=== PATIENT | male | born 1975 | race Two or more races ===

== ENCOUNTER → 2017-01-27 | Outpatient (CLI) | payer OTHER ==
[~2017-01-27] MED LIST: PERCOCET PO
--- NOTE | 2017-02-03 01:40 | ECWPNPC ---
PATIENT NAME: MOHINDER CRUMP : 1975 GENDER: MALE VISIT DATE: 01/27/2017 DISCHARGE DATE: 01/27/17 1518 VISIT LOCKED DATE TIME: PHYSICIAN: GLENN LANGLEY RESOURCE: GLENN LANGLEY REASON FOR APPOINTMENT 1. LOW BACK PAIN W/C HISTORY OF PRESENT ILLNESS NEW PATIENT CONSULT: WHEN DID YOUR PAIN FIRST START? . BRIEFLY DESCRIBE HOW YOUR PAIN STARTED? . HOW DOES YOUR PAIN CHANGE WITH TIME? . DOES YOUR PAIN AWAKEN YOU FROM SLEEP? . HOW MANY HOURS OF SLEEP DO YOU NORMALLY GET? . ANY DIAGNOSTIC TESTING? . FACILITY WHERE TESTS WERE DONE? ____. PAIN TREATMENT TREATMENT YES CANCER HAVE YOU EVER HAD ANY TYPE OF CANCER?NO NO. 41 YEAR OLD MALE PATIENT WITH HISTORY OF CHRONIC LOW BACK PAIN. PATIENT DESCRIBES THE PAIN BURNING, STABBING, SHOOTING, AND HAVING IT ALL THE TIME WITH A PAIN SCORE OF 6/10. 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 PATIENT HAS HAD BACK SURGERY FOUR YEARS PRIOR. MR. CRUMP HAS TRIED PHYSICAL THERAPY WHICH HE STATES HELPS AT THE TIME BUT THE PAIN SEEMS TO ALWAYS BE PRESENT. PATIENT IS CURRENTLY USING LYRICA TO AID IN PAIN RELIEF. MR. CRUMP HAS TRIED INJECTIONS AND STATES THAT THEY DO NOT AID IN PAIN RELIEF. PATIENT STATES THAT ANY TYPE OF ACTIVITY INCREASES THE PAIN IN THE LOWER BACK SUCH WALKING, STANDING, SITTING, AND BENDING. AT THIS TIME THE PATIENT STATES A TENNS UNIT AIDS IN PAIN RELIEF. PATIENT DENIES UNEXPLAINABLE WEIGHT LOSS, FEVER, CHILLS, NEW CHANGES ON HIS URINARY OR BOWEL CONTROL. PAIN SCREENING: PATIENT HAS A COMPLAINT OF ACUTE OR CHRONIC PAIN YES FALL RISK SCREENING: SCREENING :NO FALLS IN THE PAST YEAR ALVARADO INVENTORY: QUESTIONNAIRE ASSESSEDTBD SCORE VALUE CALCULATED TBD CURRENT MEDICATIONS TAKING LISINOPRIL-HYDROCHLOROTHIAZIDE 20-12.5 MG TABLET 1 TABLET ORALLY ONCE A DAY TAKING AMLODIPINE BESYLATE 5 MG TABLET 1 TABLET ORALLY ONCE A DAY TAKING OMEPRAZOLE 40 MG CAPSULE DELAYED RELEASE 1 CAPSULE ORALLY ONCE A DAY TAKING VENLAFAXINE HCL 37.5 MG TABLET 1 TABLET WITH FOOD ORALLY DAILY TAKING BUPROPION HCL (XL) 300 MG TABLET EXTENDED RELEASE 24 HOUR 1 TABLET IN THE MORNING ORALLY ONCE A DAY TAKING ATORVASTATIN CALCIUM 20 MG TABLET 1 TABLET ORALLY ONCE A DAY TAKING METFORMIN HCL 500 MG TABLET 1 TABLET WITH MEALS ORALLY TWICE A DAY TAKING LYRICA 75 MG CAPSULE 1 CAPSULE ORALLY TWICE A DAY MEDICATION LIST REVIEWED AND RECONCILED WITH THE PATIENT PAST MEDICAL HISTORY SLEEP APNEA HYPERCHOLESTREMIA HTN TYPE II DM GERD ALLERGIES PENICILLIN (FOR ALLERGIES USE ONLY) SURGICAL HISTORY BACK SURGERY 08/1992 BACK SURGERY 09/2013 CARPAL TUNNEL 06/2015 CARPAL TUNNEL 07/2015 FAMILY HISTORY NO FAMILY HISTORY DOCUMENTED. SOCIAL HISTORY GENERAL: TOBACCO USE ARE YOU A:CURRENT SMOKER PATIENT COUNSELED ON THE DANGERS OF TOBACCO USE AND URGED TO QUIT:01/27/2017 ARE YOU INTERESTED IN QUITTING?READY TO QUIT COUNSELED THE PATIENT ON TOBACCO USE, CESSATION [id number]/08/2017 ALCOHOL SCREENING POINTS8 INTERPRETATIONPOSITIVE RECREATIONAL DRUG USE DRUG USE?NO CAFFEINE CAFFEINE USE?YES HOW OFTEN AND HOW MUCH? 3 CUPS OF COFFEE EVERY MORNING OCCUPATION: [employer]. DIET: REGULAR. EXERCISE: WALKS, DAILY. MARITAL STATUS: SINGLE. OTHERS AT HOME: NONE. PETS: 1 DOG. SCIENTOLOGIST: MANDAEISM. LANGUAGE: TAMAZIGHT. 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 LEARNING BARRIERS / SPECIAL NEEDS CHANGE FROM LAST VISIT?NO BARRIERS TO LEARNING?NO HEARING IMPAIRED?NO VISION IMPAIRED?NO COGNITIVELY IMPAIRED?NO LEARNING PREFERENCES?NO SPECIAL DEVICES?NO LOCKSTITCH ZIPPER SETTER NEEDED?NO PSYCHOLOGICAL HX TREATMENTNO PAIN CLINIC PFS, CLERGY, PUBLIC HEALTH REFERRALS CLERGY REFERRAL NEEDED?NO WAS THE PROVIDER NOTIFIED OF ANY PERTINENT INFO?NO PFS REFERRAL NEEDED?NO PUBLIC HEALTH REFERRAL NEEDED?NO PATIENT: ____. ADVANCED DIRECTIVES HEALTH CARE PROXY?NO POWER OF PAINTER PLATE?NO HOSPITALIZATION/MAJOR DIAGNOSTIC PROCEDURE BACK SURGERY 08/1992 BACK SURGERY 09/2013 HEAD INJURY FROM A FALL 04/2014 REVIEW OF SYSTEMS CONSTITUTIONAL: ANY CHANGE IN YOUR MEDICAL CONDITION? NO . CHILLS NO . FEVER NO . INFECTION: DO YOU HAVE NEW INFECTIONS? NO . DO YOU HAVE HISTORY OF MRSA? NO . MUSCULOSKELETAL: ANY NEW PATTERNS OF PAIN OR NUMBNESS? NO . SYTEMIC LUPUS NO . GASTROENTEROLOGY: ANY NEW CHANGE IN BOWEL CONTROL? NO . BARRETTS ESOPHAGUS NO . CIRRHOSIS NO . HEPATITIS NO . LIVER FAILURE NO . ACID REFLUX NO . UNEXPLAINED WEIGHT LOSS NO . GENITOURINARY: ANY NEW CHANGE IN BLADDER CONTROL? NO . IS THERE A CHANCE YOU COULD BE ? NO . HEMATOLOGY/LYMPH: DO YOU TAKE ANY BLOOD THINNERS? (FOR EXAMPLE- COUMADIN, PLAVIX, AGGRENOX, PLATEL, PRADAXA, OR XARELTO) NO . WHEN WAS YOUR LAST DOSE? DATE: TIME: . LOW PLATELET COUNT NO . SICKLE CELL DISEASE NO . VON WILLIEBRANDS NO . FACTOR V LEIDEN NO . THALLASEMIA NO . ANEMIA NO . EASY BRUISING NO . NEUROLOGY: HAVE YOU FALLEN IN THE PAST 6 MONTHS? NO . ANY NEW EXTREMITY NUMBNESS OR WEAKNESS? NO . HEAD INJURY NO . DEMENTIA NO . CEREBRAL PALSY NO . MULTIPLE SCLEROSIS NO . DIZZINESS NO . HEADACHE NO . STROKES NO . VERTIGO NO . CARDIOLOGY: DO YOU HAVE A PACEMAKER OR DEFIBRILLATOR? NO . ANGINA NO . HEART ATTACK NO . HEART SURGERY NO . CONGESTIVE HEART FAILURE/FLUID OVERLOAD NO . CHEST PAIN NO . HIGH BLOOD PRESSURE NO . IRREGULAR HEART BEAT NO . RESPIRATORY: HAVE YOU BEEN SICK IN THE PAST WEEK? NO . FEVER NO . FLU LIKE SYMPTOMS? NO . CPAP NO . BYPAP NO . ASTHMA NO . EMPHYSEMA NO . CHRONIC LUNG DISEASES NO . SHORTNESS OF BREATH ON EXERTION NO . DO YOU USE ANY TYPE OF TOBACCO (SMOKE, SMOKELESS, CHEW)? NO . COUGH NO . SNORING NO . INTEGUMENTARY: DO YOU HAVE ANY RASHES OR OPEN SORES? YES . ALLERGIC/IMMUNO: ARE YOU ALLERGIC TO SHELLFISH OR IV DYE? NO . ANY NEW ALLERGIES? NO . PSYCHIATRIC: DO YOU HAVE THOUGHTS OF HURTING YOURSELF OR SOMEONE ELSE? NO . ARE YOU ABUSED, NEGLECTED, OR IN AN UNSAFE ENVIRONMENT? NO . ENDOCRINOLOGY: ARE YOU DIABETIC? YES . THYROID DISORDER NO . OTHER: DO YOU NEED ANY PRESCRIPTIONS? NO . IF YES, PLEASE LIST: ____ . ANY NEW PROBLEMS WITH YOUR MEDICATIONS? NO . WHEN DID YOU LAST EAT? ____ . WHEN DID YOU LAST DRINK? ____ . WHAT DID YOU LAST DRINK? ____ . NAME OF PERSON DRIVING YOU HOME? ____ . DO YOU HAVE ANY OTHER QUESTIONS OR CONCERNS NO . REVIEWED BY: PROVIDER: GLENN LANGLEY MD . VITAL SIGNS WT 309.2 LBS, HT 71.5", BMI 42.52 INDEX, BP 133/78 MM HG, HR 95 /MIN, RR 18 /MIN, TEMP 98.2 F, OXYGEN SAT % 94, NA INITIALS TL 1322, REVIEWED BY: MARISA. EXAMINATION : PATIENT IS ALERT O X 3 AND COOPERATIVE. TENDERNESS IN THE LOWER BACK AND PARASPINAL MUSCLE GROUP. BANDS OF TISSUE, RESTRICTION OF MOVEMENT, AND PRESENCE OF TRIGGER POINTS IN THE LOWER BACK AREA. TWO SCARS IN THE LOWER BACK APPROXIMATELY 2 1/2 INCHES LONG AND ANOTHER 3 INCHES LONG. DIFFICULTY STANDING. LIMPING FROM RIGHT LEG. RIGHT LEG WEAKER THEN THE LEFT AT EXTENSION AND FLEXION. MRI DONE ON 05/27/16 OF THE LUMBAR SPINE SHOWS DISC BULGES AT L1-L2 AND L3-L4, DISC PROTRUSION L2-L3, DISC EXTRUSION L4-L5 AND L5-S1, AND HYPERTROPHY. ASSESSMENTS INTERVERTEBRAL DISC DISORDERS WITH RADICULOPATHY, LUMBAR REGION - M51.16 (PRIMARY) INTERVERTEBRAL DISC DISORDERS WITH RADICULOPATHY, LUMBOSACRAL REGION - M51.17 TREATMENT INTERVERTEBRAL DISC DISORDERS WITH RADICULOPATHY, LUMBAR REGION NOTES: WE DISCUSSED SEVERAL ISSUES WITH MR. CRUMP'S PAIN MANAGEMENT CASE. AT THIS TIME THE PATIENT WILL CONTINUE WITH THE SAME MEDICATION REGIME BEFORE. WE DISCUSSED MOVING FORWARD WITH THE DCS, PATIENT IS AWARE HE WILL NEED A THORACIC MRI ALONG WITH A PSYCHOLOGICAL EVALUATION BEFORE WE CAN MOVE FORWARD WITH THE TRIAL. AT THIS TIME THE PATIENT WILL TAKE HOME INFORMATION ON DCS FROM [facility] [employer]. PATIENT REPORTS UNDERSTANDING AND WILL RETURN TO THE CLINIC IN 6 WEEKS AFTER THE MRI AND PSYCHOLOGICAL EVALUATION. INSTRUCTIONS WERE GIVEN, QUESTIONS WERE ANSWERED, PATIENT REPORTS UNDERSTANDING AND AGREES WITH THE PLAN. I, RAKESH SANTOS, DOCUMENTED THE ABOVE INFORMATION ACTING A SCRIBE FOR DR. LANGLEY. I HAVE REVIEWED THE ABOVE DOCUMENT, WRITTEN BY RAKESH BOND AND I VERIFY THAT IT IS ACCURATE. DEAR DR. COX:THANK YOU FOR YOUR KIND REFERRAL OF MR. CRUMP. YOU WANT TO DISCUSS HER CASE WITH ME PLEASE CALL ME AT THE PAIN CENTER AT [phone]. SINCERELY,GLENN LANGLEY, [facility]. PROCEDURES PN WORKMANS' COMP OPINION IN YOUR OPINION, WAS THE INCIDENT THAT THE PATIENT DESCRIBED THE COMPETENT MEDICAL CAUSE OF THIS INJURY/ILLNESS? YES ARE THE PATIENT'S COMPLAINTS CONSISTENT WITH HIS/HER HISTORY OF THE INJURY/ILLNESS? YES IS THE PATIENT'S HISTORY OF THE INJURY/ILLNESS CONSISTENT WITH YOUR OBJECTIVE FINDING? YES WHAT IS THE PERCENTAGE OF TEMPORARY IMPAIRMENT? MODERATE TO MARKED = 66.7% IS THE PATIENT WORKING? NO DOCTOR ON SITE: GLENN NANCE MD PROCEDURE CODES FA211 ESTABILISHED PATIENT [facility] FACILITY CHARGE G8427 DOC MEDS VERIFIED W/PT OR RE G8730 PAIN ASSESS POS TOOL F/U PLAN DOC DISPOSITION & COMMUNICATION FOLLOW UP 6 WEEKS ELECTRONICALLY SIGNED BY GLENN LANGLEY MD ON 01/31/2017 AT 10:58 AM EDT DISCLAIMER : THIS IS A VISIT SUMMARY EXTRACTED FROM THE [facility] CHART. IT IS NOT A COPY OF THE [facility] PROGRESS NOTE. MTDD
== END ==
LOC: M PAIN 13:20
PROVIDERS: ATTEND Anesthesiology
DX: G89.29 Other chronic pain (principal); M51.16 Intervertebral disc disorders with radiculopathy, lumbar region; M51.17 Intervertebral disc disorders with radiculopathy, lumbosacral region; G47.30 Sleep apnea, unspecified; E78.00 Pure hypercholesterolemia, unspecified; I10 Essential (primary) hypertension; E11.9 Type 2 diabetes mellitus without complications; K21.9 Gastro-esophageal reflux disease without esophagitis; Z88.0 Allergy status to penicillin; F17.200 Nicotine dependence, unspecified, uncomplicated; Z79.84 Long term (current) use of oral hypoglycemic drugs; Z79.899 Other long term (current) drug therapy

== ENCOUNTER → 2017-05-26 | Outpatient (CLI) | payer OTHER ==
[~2017-05-26] MED LIST changes: +AMLO5TAB2 PO; +ATOR1TAB21 PO; +BUPR300T34 PO; +DRIS50002 PO; +LISI20TA PO; +LYRI75CA PO; +METF500T13 PO; +OMEP40CA2 PO; +VENL37.52 PO
--- NOTE | 2017-06-07 00:07 | ECWPNPC ---
PATIENT NAME: MOHINDER CRUMP : 1975 GENDER: MALE VISIT DATE: 05/26/2017 DISCHARGE DATE: 05/26/17 1536 VISIT LOCKED DATE TIME: PHYSICIAN: GLENN LANGLEY RESOURCE: GLENN LANGLEY REASON FOR APPOINTMENT 1. LOW BACK PAIN W/C HISTORY OF PRESENT ILLNESS HISTORY OF PRESENT ILLNESS: PAIN THE PATIENT DESCRIBES THE PAIN... 41 YEAR OLD MALE PATIENT WITH HISTORY OF CHRONIC LOW BACK PAIN. PATIENT DESCRIBES THE PAIN BURNING, STABBING, SHOOTING, AND HAVING IT ALL THE TIME WITH A PAIN SCORE OF 6/10. 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 PATIENT HAS HAD BACK SURGERY FOUR YEARS AGO. MR. CRUMP HAS TRIED PHYSICAL THERAPY WHICH HE STATES HELPS AT THE TIME BUT THE PAIN SEEMS TO ALWAYS BE PRESENT. PATIENT IS CURRENTLY USING LYRICA TO AID IN PAIN RELIEF. MR. CRUMP HAS TRIED INJECTIONS AND STATES THAT THEY DO NOT AID IN PAIN RELIEF. PATIENT HAS RECEIVED LUMBAR AND THORACIC MRI'S WELL A PSYCHOLOGICAL EVALUATION FOR A DCS. PATIENT STATES THAT ANY TYPE OF ACTIVITY INCREASES THE PAIN IN THE LOWER BACK SUCH WALKING, STANDING, SITTING, AND BENDING. AT THIS TIME THE PATIENT STATES A TENNS UNIT AIDS IN PAIN RELIEF. PATIENT DENIES UNEXPLAINABLE WEIGHT LOSS, FEVER, CHILLS, NEW CHANGES ON HIS URINARY OR BOWEL CONTROL. FALL RISK SCREENING: SCREENING :NO FALLS IN THE PAST YEAR CURRENT MEDICATIONS TAKING LISINOPRIL-HYDROCHLOROTHIAZIDE 20-12.5 MG TABLET 1 TABLET ORALLY ONCE A DAY TAKING AMLODIPINE BESYLATE 5 MG TABLET 1 TABLET ORALLY ONCE A DAY TAKING OMEPRAZOLE 40 MG CAPSULE DELAYED RELEASE 1 CAPSULE ORALLY ONCE A DAY TAKING VENLAFAXINE HCL 37.5 MG TABLET 1 TABLET WITH FOOD ORALLY DAILY TAKING BUPROPION HCL ER (XL) 300 MG TABLET EXTENDED RELEASE 24 HOUR 1 TABLET IN THE MORNING ORALLY ONCE A DAY TAKING ATORVASTATIN CALCIUM 20 MG TABLET 1 TABLET ORALLY ONCE A DAY TAKING METFORMIN HCL 500 MG TABLET 1 TABLET WITH MEALS ORALLY TWICE A DAY TAKING LYRICA 75 MG CAPSULE 1 CAPSULE ORALLY TWICE A DAY TAKING VALIUM 5 MG TABLET 1 TABLET NEEDED ORALLY 3 HRS BEFORE MRI MAY REPEAT IN 2 HRS IF NEEDED MDD2 TAKING VITAMIN D (ERGOCALCIFEROL) 69449 UNIT CAPSULE 1 CAPSULE ORALLY MEDICATION LIST REVIEWED AND RECONCILED WITH THE PATIENT PAST MEDICAL HISTORY SLEEP APNEA HYPERCHOLESTREMIA HTN TYPE II DM GERD ALLERGIES PENICILLIN (FOR ALLERGIES USE ONLY) REVIEW OF SYSTEMS REVIEWED BY: PROVIDER: GLENN LANGLEY MD . CONSTITUTIONAL: ANY CHANGE IN YOUR MEDICAL CONDITION? NO . CHILLS NO . FEVER NO . INFECTION: DO YOU HAVE NEW INFECTIONS? NO . DO YOU HAVE HISTORY OF MRSA? NO . MUSCULOSKELETAL: ANY NEW PATTERNS OF PAIN OR NUMBNESS? NO . GASTROENTEROLOGY: ANY NEW CHANGE IN BOWEL CONTROL? NO . GENITOURINARY: ANY NEW CHANGE IN BLADDER CONTROL? NO . IS THERE A CHANCE YOU COULD BE ? NO . HEMATOLOGY/LYMPH: DO YOU TAKE ANY BLOOD THINNERS? (FOR EXAMPLE- COUMADIN, PLAVIX, AGGRENOX, PLATEL, PRADAXA, OR XARELTO) NO . WHEN WAS YOUR LAST DOSE? DATE: TIME: . NEUROLOGY: HAVE YOU FALLEN IN THE PAST 6 MONTHS? NO . ANY NEW EXTREMITY NUMBNESS OR WEAKNESS? NO . CARDIOLOGY: DO YOU HAVE A PACEMAKER OR DEFIBRILLATOR? NO . RESPIRATORY: HAVE YOU BEEN SICK IN THE PAST WEEK? NO . FEVER NO . FLU LIKE SYMPTOMS? NO . COUGH NO . INTEGUMENTARY: DO YOU HAVE ANY RASHES OR OPEN SORES? NO . ALLERGIC/IMMUNO: ARE YOU ALLERGIC TO SHELLFISH OR IV DYE? NO . ANY NEW ALLERGIES? NO . PSYCHIATRIC: DO YOU HAVE THOUGHTS OF HURTING YOURSELF OR SOMEONE ELSE? NO . ARE YOU ABUSED, NEGLECTED, OR IN AN UNSAFE ENVIRONMENT? NO . ENDOCRINOLOGY: ARE YOU DIABETIC? NO . OTHER: DO YOU NEED ANY PRESCRIPTIONS? NO . IF YES, PLEASE LIST: ____ . ANY NEW PROBLEMS WITH YOUR MEDICATIONS? NO . WHEN DID YOU LAST EAT? ____ . WHEN DID YOU LAST DRINK? ____ . WHAT DID YOU LAST DRINK? ____ . NAME OF PERSON DRIVING YOU HOME? ____ . DO YOU HAVE ANY OTHER QUESTIONS OR CONCERNS NO . VITAL SIGNS WT 295.8 LBS, HT 71.5", BMI 40.68 INDEX, BP 133/76 MM HG, HR 94 /MIN, RR 111 /MIN, TEMP 98.8 F, OXYGEN SAT % 94%, NA INITIALS SC 14:33. EXAMINATION : PATIENT IS ALERT O X 3 AND COOPERATIVE. TENDERNESS IN THE LOWER BACK AND PARASPINAL MUSCLE GROUP. BANDS OF TISSUE, RESTRICTION OF MOVEMENT, AND PRESENCE OF TRIGGER POINTS IN THE LOWER BACK AREA. TWO SCARS IN THE LOWER BACK APPROXIMATELY 2 1/2 INCHES LONG AND ANOTHER 3 INCHES LONG. DIFFICULTY STANDING. LIMPING FROM RIGHT LEG. RIGHT LEG WEAKER THEN THE LEFT AT EXTENSION AND FLEXION. MRI DONE ON 05/27/16 OF THE LUMBAR SPINE SHOWS DISC BULGES AT L1-L2 AND L3-L4, DISC PROTRUSION L2-L3, DISC EXTRUSION L4-L5 AND L5-S1, AND HYPERTROPHY. ASSESSMENTS INTERVERTEBRAL DISC DISORDERS WITH RADICULOPATHY, LUMBAR REGION - M51.16 (PRIMARY) INTERVERTEBRAL DISC DISORDERS WITH RADICULOPATHY, LUMBOSACRAL REGION - M51.17 TREATMENT INTERVERTEBRAL DISC DISORDERS WITH RADICULOPATHY, LUMBAR REGION NOTES: WE DISCUSSED SEVERAL ISSUES WITH MR. CRUMP'S PAIN MANAGEMENT CASE. AT THIS TIME THE PATIENT WILL CONTINUE WITH THE SAME MEDICATION REGIME. AFTER VIEWING THE PSYCHOLOGICAL EVALUATION ALONG WIT THE MRI'S THE PATIENT IS A VERY GOOD CANDIDATE FOR THE DCS. AT THIS TIME HE HAS CHOSEN TO MOVE FORWARD WITH [employer]. I AM GOING TO REQUEST AUTHORIZATION FOR THE TRIAL AT THIS TIME. PATIENT IS AWARE THAT THE TRIAL IS 5 DAYS LONG AND WILL NEED TO STAY ONE NIGHT IN THE HOSPITAL TO RECEIVE ANTIBIOTICS THROUGH AN IV. WE DISCUSSED THE RISKS, BENENFITS, AND ALTNERATIVES OF THE DCS AND THE PATIENT WOULD LIKE TO PROCEED. INSTRUCTIONS WERE GIVEN, QUESTIONS WERE ANSWERED, PATIENT REPORTS UNDERSTANDING AND AGREES WITH THE PLAN. I, RAKESH SANTOS, DOCUMENTED THE ABOVE INFORMATION ACTING A SCRIBE FOR DR. LANGLEY. I HAVE REVIEWED THE ABOVE DOCUMENT, WRITTEN BY RAKESH BOND AND I VERIFY THAT IT IS ACCURATE. PROCEDURES PN WORKMANS' COMP OPINION IN YOUR OPINION, WAS THE INCIDENT THAT THE PATIENT DESCRIBED THE COMPETENT MEDICAL CAUSE OF THIS INJURY/ILLNESS? YES ARE THE PATIENT'S COMPLAINTS CONSISTENT WITH HIS/HER HISTORY OF THE INJURY/ILLNESS? YES IS THE PATIENT'S HISTORY OF THE INJURY/ILLNESS CONSISTENT WITH YOUR OBJECTIVE FINDING? YES WHAT IS THE PERCENTAGE OF TEMPORARY IMPAIRMENT? MODERATE TO MARKED = 66.7% IS THE PATIENT WORKING? NO DOCTOR ON SITE: GLENN NANCE MD PROCEDURE CODES FA211 ESTABILISHED PATIENT [facility] FACILITY CHARGE G2022 DOC MEDS VERIFIED W/PT OR RE W7408 PAIN ASSESS POS TOOL F/U PLAN DOC DISPOSITION & COMMUNICATION FOLLOW UP 3 WEEKS ELECTRONICALLY SIGNED BY GLENN LANGLEY MD ON 06/06/2017 AT 10:13 PM EDT DISCLAIMER : THIS IS A VISIT SUMMARY EXTRACTED FROM THE [facility] CHART. IT IS NOT A COPY OF THE [facility] PROGRESS NOTE. AALIYAH
== END ==
LOC: M PAIN 14:20
PROVIDERS: ATTEND Anesthesiology
DX: M51.16 Intervertebral disc disorders with radiculopathy, lumbar region (principal); M51.17 Intervertebral disc disorders with radiculopathy, lumbosacral region; G89.29 Other chronic pain; M54.5 Low back pain; Z79.84 Long term (current) use of oral hypoglycemic drugs; Z79.899 Other long term (current) drug therapy; Z88.0 Allergy status to penicillin

== ENCOUNTER → 2017-06-24 | Outpatient (CLI) | payer OTHER ==
--- NOTE | 2017-07-11 23:58 | ECWPNPC ---
PATIENT NAME: MOHINDER CRUMP : 1975 GENDER: MALE VISIT DATE: 06/24/2017 DISCHARGE DATE: 06/24/17 1638 VISIT LOCKED DATE TIME: PHYSICIAN: GLENN LANGLEY RESOURCE: GLENN LANGLEY REASON FOR APPOINTMENT 1. LOW BACK PAIN HISTORY OF PRESENT ILLNESS HISTORY OF PRESENT ILLNESS: PAIN THE PATIENT DESCRIBES THE PAIN... 41 YEAR OLD MALE PATIENT WITH HISTORY OF CHRONIC LOW BACK PAIN. PATIENT DESCRIBES THE PAIN BURNING, STABBING, SHOOTING, AND HAVING IT ALL THE TIME WITH A PAIN SCORE OF 6/10. PATIENT WAS HURT IN A WORK RELATED INJURY ON 07/05/14 WHILE WORKING AT THE [employer] AND WAS BENDING DOWN TO UTILITY ACCOUNTS DIRECTOR A BEAM. PATIENT HAS HAD BACK SURGERY FOUR YEARS AGO. MR. CRUMP HAS TRIED PHYSICAL THERAPY WHICH HE STATES HELPS AT THE TIME BUT THE PAIN SEEMS TO ALWAYS BE PRESENT. PATIENT IS CURRENTLY USING LYRICA TO AID IN PAIN RELIEF. MR. CRUMP HAS TRIED INJECTIONS AND STATES THAT THEY DO NOT AID IN PAIN RELIEF. PATIENT STATES THAT ANY TYPE OF ACTIVITY INCREASES THE PAIN IN THE LOWER BACK SUCH WALKING, STANDING, SITTING, AND BENDING. AT THIS TIME THE PATIENT STATES A TENNS UNIT AIDS IN PAIN RELIEF. PATIENT WOULD LIKE TO PROCEED WITH THE DCS. PATIENT DENIES UNEXPLAINABLE WEIGHT LOSS, FEVER, CHILLS, NEW CHANGES ON HIS URINARY OR BOWEL CONTROL. FALL RISK SCREENING: SCREENING :NO FALLS IN THE PAST YEAR CURRENT MEDICATIONS TAKING LISINOPRIL-HYDROCHLOROTHIAZIDE 20-12.5 MG TABLET 1 TABLET ORALLY ONCE A DAY TAKING AMLODIPINE BESYLATE 5 MG TABLET 1 TABLET ORALLY ONCE A DAY TAKING OMEPRAZOLE 40 MG CAPSULE DELAYED RELEASE 1 CAPSULE ORALLY ONCE A DAY TAKING VENLAFAXINE HCL 37.5 MG TABLET 1 TABLET WITH FOOD ORALLY DAILY TAKING BUPROPION HCL ER (XL) 300 MG TABLET EXTENDED RELEASE 24 HOUR 1 TABLET IN THE MORNING ORALLY ONCE A DAY TAKING ATORVASTATIN CALCIUM 20 MG TABLET 1 TABLET ORALLY ONCE A DAY TAKING METFORMIN HCL 500 MG TABLET 1 TABLET WITH MEALS ORALLY TWICE A DAY TAKING LYRICA 75 MG CAPSULE 1 CAPSULE ORALLY TWICE A DAY TAKING VITAMIN D (ERGOCALCIFEROL) 07585 UNIT CAPSULE 1 CAPSULE ORALLY WEEKLY NOT-TAKING VALIUM 5 MG TABLET 1 TABLET NEEDED ORALLY 3 HRS BEFORE MRI MAY REPEAT IN 2 HRS IF NEEDED MDD2 MEDICATION LIST REVIEWED AND RECONCILED WITH THE PATIENT PAST MEDICAL HISTORY SLEEP APNEA HYPERCHOLESTREMIA HTN TYPE II DM GERD ALLERGIES PENICILLIN (FOR ALLERGIES USE ONLY) SOCIAL HISTORY GENERAL: TOBACCO USE ARE YOU A:CURRENT SMOKER PATIENT COUNSELED ON THE DANGERS OF TOBACCO USE AND URGED TO QUIT:01/27/2017 ARE YOU INTERESTED IN QUITTING?READY TO QUIT COUNSELED THE PATIENT ON TOBACCO USE, CESSATION [id number]/2017 ALCOHOL SCREENING DID YOU HAVE A DRINK CONTAINING ALCOHOL IN THE PAST YEAR?YES HOW OFTEN DID YOU HAVE A DRINK CONTAINING ALCOHOL IN THE PAST YEAR?TWO TO FOUR TIMES A MONTH (2 POINTS) HOW MANY DRINKS DID YOU HAVE ON A TYPICAL DAY WHEN YOU WERE DRINKING IN THE PAST YEAR?10 OR MORE (4 POINTS) HOW OFTEN DID YOU HAVE SIX OR MORE DRINKS ON ONE OCCASION IN THE PAST YEAR?MONTHLY (2 POINTS) POINTS8 INTERPRETATIONPOSITIVE RECREATIONAL DRUG USE DRUG USE?NO CAFFEINE CAFFEINE USE?YES HOW OFTEN AND HOW MUCH? 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 DIET: REGULAR. EXERCISE: WALKS, DAILY. MARITAL STATUS: SINGLE. OTHERS AT HOME: NONE. PETS: 1 DOG. [employer]. 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 LEARNING BARRIERS / SPECIAL NEEDS CHANGE FROM LAST VISIT?NO BARRIERS TO LEARNING?NO HEARING IMPAIRED?NO VISION IMPAIRED?NO COGNITIVELY IMPAIRED?NO LEARNING PREFERENCES?NO SPECIAL DEVICES?NO PIPE COVERER AND INSULATOR NEEDED?NO PSYCHOLOGICAL HX TREATMENTNO PAIN CLINIC PFS, CLERGY, PUBLIC HEALTH REFERRALS PFS REFERRAL NEEDED?NO CLERGY REFERRAL NEEDED?NO PUBLIC HEALTH REFERRAL NEEDED?NO WAS THE PROVIDER NOTIFIED OF ANY PERTINENT INFO?NO HAS THE PATIENT BEEN EDUCATED REGARDING HIS/HER PLAN OF CARE?YES HAS THE PATIENT BEEN EDUCATED REGARDING PAIN, THE RISK FOR PAIN, THE IMPORTANCE OF EFFECTIVE PAIN MANAGEMENT, AND THE PAIN ASSESSMENT PROCESS?YES PATIENT: ____. ADVANCE DIRECTIVES HEALTH CARE PROXY?NO POWER OF BATTERY TEST ENGINEER?NO REVIEW OF SYSTEMS REVIEWED BY: PROVIDER: GLENN LANGLEY MD . CONSTITUTIONAL: ANY CHANGE IN YOUR MEDICAL CONDITION? NO . CHILLS NO . FEVER NO . INFECTION: DO YOU HAVE NEW INFECTIONS? NO . DO YOU HAVE HISTORY OF MRSA? NO . MUSCULOSKELETAL: ANY NEW PATTERNS OF PAIN OR NUMBNESS? NO . GASTROENTEROLOGY: ANY NEW CHANGE IN BOWEL CONTROL? NO . GENITOURINARY: ANY NEW CHANGE IN BLADDER CONTROL? NO . IS THERE A CHANCE YOU COULD BE ? NO . HEMATOLOGY/LYMPH: DO YOU TAKE ANY BLOOD THINNERS? (FOR EXAMPLE- COUMADIN, PLAVIX, AGGRENOX, PLATEL, PRADAXA, OR XARELTO) NO . WHEN WAS YOUR LAST DOSE? DATE: TIME: . NEUROLOGY: HAVE YOU FALLEN IN THE PAST 6 MONTHS? NO . ANY NEW EXTREMITY NUMBNESS OR WEAKNESS? NO . CARDIOLOGY: DO YOU HAVE A PACEMAKER OR DEFIBRILLATOR? NO . RESPIRATORY: HAVE YOU BEEN SICK IN THE PAST WEEK? NO . FEVER NO . FLU LIKE SYMPTOMS? NO . COUGH NO . INTEGUMENTARY: DO YOU HAVE ANY RASHES OR OPEN SORES? NO . ALLERGIC/IMMUNO: ARE YOU ALLERGIC TO SHELLFISH OR IV DYE? NO . ANY NEW ALLERGIES? NO . PSYCHIATRIC: DO YOU HAVE THOUGHTS OF HURTING YOURSELF OR SOMEONE ELSE? NO . ARE YOU ABUSED, NEGLECTED, OR IN AN UNSAFE ENVIRONMENT? NO . ENDOCRINOLOGY: ARE YOU DIABETIC? NO . OTHER: DO YOU NEED ANY PRESCRIPTIONS? NO . IF YES, PLEASE LIST: ____ . ANY NEW PROBLEMS WITH YOUR MEDICATIONS? NO . WHEN DID YOU LAST EAT? ____ . WHEN DID YOU LAST DRINK? ____ . WHAT DID YOU LAST DRINK? ____ . NAME OF PERSON DRIVING YOU HOME? ____ . DO YOU HAVE ANY OTHER QUESTIONS OR CONCERNS NO . VITAL SIGNS WT 299.0 LBS, HT 71.5", BMI 41.12 INDEX, BP 140/81 MM HG, HR 96 /MIN, RR 18 /MIN, TEMP 98.2 F, OXYGEN SAT % 95, NA INITIALS MP 1513, REVIEWED BY: CS. EXAMINATION : PATIENT IS ALERT O X 3 AND COOPERATIVE. TENDERNESS IN THE LOWER BACK AND PARASPINAL MUSCLE GROUP. BANDS OF TISSUE, RESTRICTION OF MOVEMENT, AND PRESENCE OF TRIGGER POINTS IN THE LOWER BACK AREA. TWO SCARS IN THE LOWER BACK APPROXIMATELY 2 1/2 INCHES LONG AND ANOTHER 3 INCHES LONG. DIFFICULTY STANDING. LIMPING FROM RIGHT LEG. RIGHT LEG WEAKER THEN THE LEFT AT EXTENSION AND FLEXION. MRI DONE ON 05/27/16 OF THE LUMBAR SPINE SHOWS DISC BULGES AT L1-L2 AND L3-L4, DISC PROTRUSION L2-L3, DISC EXTRUSION L4-L5 AND L5-S1, AND HYPERTROPHY. ASSESSMENTS INTERVERTEBRAL DISC DISORDERS WITH RADICULOPATHY, LUMBAR REGION - M51.16 (PRIMARY) INTERVERTEBRAL DISC DISORDERS WITH RADICULOPATHY, LUMBOSACRAL REGION - M51.17 TREATMENT INTERVERTEBRAL DISC DISORDERS WITH RADICULOPATHY, LUMBAR REGION NOTES: WE DISCUSSED SEVERAL ISSUES WITH MR. CRUMP'S PAIN MANAGEMENT. PATIENT WILL CONTINUE WITH LYRICA FOR THE NEUROPATHIC PAIN. PATIENT WAS GIVEN CLINDAMYCIN TO BE USED AFTER HE LEAVES THE HOSPITAL. PATIENT IS AWARE HE WILL NEED TO STAY IN THE HOSPITAL FOR ONE NIGHT TO RECEIVE ANTIBIOTICS THROUGH IV. PATIENT IS AWARE HE WILL NEED TO STOP ANY PAIN MEDICATION INCLUDING IBUPROFEN AND ASPIRIN. WE DISCUSSED RISKS, BENENFITS, AND ALTNERATIVES TO THE DCS TRIAL AND THE PATIENT WOULD LIKE TO PROCEED AT THIS TIME. INSTRUCTIONS WERE GIVEN, QUESTIONS WERE ANSWERED, PATIENT REPORTS UNDERSTANDING AND AGREES WITH THE PLAN. I, RAKESH SANTOS, DOCUMENTED THE ABOVE INFORMATION ACTING A SCRIBE FOR DR. LANGLEY. I HAVE REVIEWED THE ABOVE DOCUMENT, WRITTEN BY RAKESH BOND AND I VERIFY THAT IT IS ACCURATE. OTHERS REFILL LYRICA CAPSULE, 75 MG, 1 CAPSULE, ORALLY, TWICE A DAY FOR PAIN MDD2, 30 DAY(S), 60, REFILLS 0 START CLINDAMYCIN HCL CAPSULE, 150 MG, 2 CAPSULES, ORALLY, EVERY 8 HRS, 5 DAY(S), 30 START CLINDAMYCIN HCL CAPSULE, 150 MG, 1 CAPSULE, ORALLY, EVERY 8 HRS MDD3, 10 DAYS, 30, REFILLS 0 PROCEDURES PN WORKMANS' COMP OPINION IN YOUR OPINION, WAS THE INCIDENT THAT THE PATIENT DESCRIBED THE COMPETENT MEDICAL CAUSE OF THIS INJURY/ILLNESS? YES ARE THE PATIENT'S COMPLAINTS CONSISTENT WITH HIS/HER HISTORY OF THE INJURY/ILLNESS? YES IS THE PATIENT'S HISTORY OF THE INJURY/ILLNESS CONSISTENT WITH YOUR OBJECTIVE FINDING? YES WHAT IS THE PERCENTAGE OF TEMPORARY IMPAIRMENT? MODERATE TO MARKED = 66.7% IS THE PATIENT WORKING? NO DOCTOR ON SITE: GLENN NANCE MD PROCEDURE CODES G8427 DOC MEDS VERIFIED W/PT OR RE G8730 PAIN ASSESS POS TOOL F/U PLAN DOC FA211 ESTABILISHED PATIENT [facility] FACILITY CHARGE DISPOSITION & COMMUNICATION FOLLOW UP 3 WEEKS ELECTRONICALLY SIGNED BY GLENN LANGLEY MD ON 07/11/2017 AT 12:40 PM EDT DISCLAIMER : THIS IS A VISIT SUMMARY EXTRACTED FROM THE [employer] CHART. IT IS NOT A COPY OF THE [employer] PROGRESS NOTE. GALINDOD
== END ==
LOC: M PAIN 15:20
PROVIDERS: ATTEND Anesthesiology
DX: M51.16 Intervertebral disc disorders with radiculopathy, lumbar region (principal); M51.17 Intervertebral disc disorders with radiculopathy, lumbosacral region; M54.5 Low back pain; G89.29 Other chronic pain; F17.210 Nicotine dependence, cigarettes, uncomplicated; Z79.84 Long term (current) use of oral hypoglycemic drugs; Z79.899 Other long term (current) drug therapy; Z88.0 Allergy status to penicillin

== ENCOUNTER 2017-07-05 06:49 | Day surgery (SDC) | payer OTHER ==
[~2017-07-05] VITALS: Ht 185.4 cm; Wt 131.5 kg
[2017-07-05] VITALS (7 sets, daily range): BP systolic 119–133; BP diastolic 71–92
[2017-07-05] MEDS ORDERED: CLINDAMYCIN 600 MG in APPROPRIATE DILUENT 1 EA IV ONE ×2 (07:00→17:00)
[2017-07-05] MEDS ORDERED: LR 1,000 ML IV ONE (07:15)
[2017-07-05] MEDS ORDERED: BUPIVACAINE HCL 0.25% 30 ML VIAL As Ordered ONE (08:02)
[2017-07-05] MEDS ORDERED: LIDOCAINE W/EPINEPHRINE 1% 20ML VIAL As Ordered ONE (08:02)
[2017-07-05] MEDS ORDERED: ISOVUE-300 61% 50ML VIAL (Q9967) As Ordered ONE (08:02)
[2017-07-05] MEDS ORDERED: LIDOCAINE 2% INJ 100 MG/5 ML SDV (FOR ANES.) As Ordered ONE (08:19)
[2017-07-05] MEDS ORDERED: fentaNYL 100 MCG/2 ML INJECTION (J3010) As Ordered ONE ×2 (08:19→09:00)
[2017-07-05] MEDS ORDERED: PROPOFOL 200 MG/20 ML VIAL As Ordered ONE (08:19)
[2017-07-05] MEDS ORDERED: MIDAZOLAM INJ 2 MG/2 ML VIAL (J2250) As Ordered ONE (08:19)
[2017-07-05] MEDS ORDERED: diphenhydrAMINE INJ 50MG/ML VIAL (J1200) As Ordered ONE (09:06)
[2017-07-05] MEDS ORDERED: NORCO, ANEXSIA 5/325MG TABLET (HYDROcodone/ACETAMINOPHEN) PO PRN (11:00)
[2017-07-05] MEDS ORDERED: PERCOCET 5MG/325MG TAB PO PRN (11:00)
[2017-07-05] MEDS ORDERED: MORPHINE 2 MG/ML 1ML SYRINGE IV PRN (11:00)
[2017-07-05] MEDS ORDERED: ONDANSETRON 4MG/2ML VIAL (J2405) IV PRN (11:00)
[2017-07-05] MEDS ORDERED: LR 1,000 ML IV SCH (11:00)
[2017-07-05] MEDS: PREGABALIN 75 MG CAP(LYRICA) PO SCH ×2 (13:15→21:42)
--- NOTE | 2017-07-05 14:34 | REP ---
C-ARM VIEWS DURING PLACEMENT OF DORSAL COLUMN STIMULATOR: Multiple C-arm views are obtained of the thoracic spine region during placement of a dorsal column stimulator. Two leads are seen in the thoracic region, one of the lead tips is at the T6 level and the other is at the T5 level. 4 minutes 11 seconds fluoroscopy time utilized. Signed by Ace Thorpe MD 07/06/2017 12:30 P
[2017-07-05] MEDS ORDERED: DEXTROSE 50% 50 ML SYRINGE IV PRN (16:45)
[2017-07-05] MEDS ORDERED: GLUCOSE 4 GM CHEW TABLET PO PRN (16:45)
[2017-07-05] MEDS ORDERED: GLUCAGON FOR INJ 1 MG VIAL (J1610) SC PRN (16:45)
--- NOTE | 2017-07-05 16:52 | IPNPDOC ---
Subjective Date Seen The patient was seen on 07/05/17. Subjective Chief Complaint/HPI The patient is a 42-year-old male admitted with a reason for visit of Invertebral Disc Disorder With Radiculopathy. Events since last encounter pateint does not have any complaints at this time except for back pain , no chest pain or cough , no sob , no nausea or vomiting , no abdominal pain Objective Physical Examination General Exam: Positive: Alert, Cooperative, No Acute Distress Eye Exam: Positive: PERRLA, Conjunctiva & lids normal, EOMI, Negative: Sclera icteric ENT Exam: Positive: Atraumatic, Mucous membr. moist/pink, Pharynx Normal Neck Exam: Positive: Supple, Negative: JVD, thyromegaly Chest Exam: Positive: Clear to auscultation, Normal air movement Heart Exam: Positive: Rate Normal, Regular Rhythm, Normal S1, Normal S2, Negative: Murmurs, Rubs Abdomen Exam: Positive: Normal bowel sounds, Soft, Negative: Tenderness, Hepatospenomegaly Extremity Exam: Positive: Normal pulses, Negative: Clubbing, Cyanosis, Edema Assessment /Plan Problems (1) S/P insertion of spinal cord stimulator Status: Acute Problem Text: patient had trial spinal cord stimulator placement by Dr Medley on 07/05/17, Hospitalist consulted for management of medical comorbidities. pain management as per Dr Medley. (2) Hypertension Status: Chronic Problem Text: continue home medications (3) Hyperlipidemia Status: Chronic Problem Text: continue home medications (4) Diabetes Status: Chronic Problem Text: will hold metformin in hospital and place on sliding scale insulin FS monitoring. restart metformin on discharge. (5) GERD (gastroesophageal reflux disease) Status: Chronic (6) MIN (obstructive sleep apnea) Status: Chronic Problem Text: continue own cpap Plan/VTE VTE Prophylaxis Ordered?: Yes VS, I&O, 24H, Fishbone Vital Signs/I&O Vital Signs Date Time Temp Pulse Resp B/P (MAP) Pulse Ox O2 Delivery O2 Flow Rate FiO2 07/05/17 14:15 97.6 74 18 119/71 (87) 93 NIPPV (BIPAP/CPAP) 07/05/17 10:40 0 Laboratory Data 24H LABS Laboratory Tests 2 07/05/17 07:53: Bedside Glucose (Misc Panel) 110H SANJIV DOHERTY MD Jul 05, 2017 16:52
[2017-07-05] MEDS: OMEPRAZOLE 20 MG CAP PO SCH (17:19)
[2017-07-05] MEDS: ATORVASTATIN 20 MG TAB PO SCH (17:19)
[2017-07-05] MEDS: HumaLOG INSULIN (NovoLOG) PER UNIT SC SCH (17:20)
[2017-07-05] MEDS ORDERED: PREGABALIN 75 MG CAP(LYRICA) PO SCH (21:00)
[2017-07-05] MEDS: VENLAFAXINE **XR** 37.5 MG CAPSULE PO SCH (21:00)
[2017-07-05] MEDS ORDERED: HumaLOG INSULIN (NovoLOG) PER UNIT SC SCH (21:00)
[2017-07-05] MEDS: buPROPion **XL** TABLET 150MG (WELLBUTRIN XL) PO SCH (21:00)
[2017-07-06] MEDS ORDERED: CLINDAMYCIN 600 MG in APPROPRIATE DILUENT 1 EA IV ONE (01:00)
[2017-07-06 01:30] VITALS: BP 115/58
[2017-07-06 04:00] VITALS: BP 142/85
[2017-07-06 07:30] LABS: BASO # 0.1 K/mm3 (0.0-0.2); BASO % 0.6 % (0.0-1.0); EOS # 0.3 K/mm3 (0.0-0.50); EOS % 3.3 % (0.0-3.0); LARGE UNSTAINED CELL # 0.2 K/mm3 (0.0-0.4); LYMPH # 2.8 K/mm3 (1.5-4.5); LYMPH % 25.1 % (24.0-44.0); MEAN CORPUSCULAR HEMOGLOBIN 32.7 pg (27.0-33.0); MEAN CORPUSCULAR HGB CONC 34.1 g/dl (32.0-36.5); MEAN CORPUSCULAR VOLUME 95.9 fl (80.0-96.0); MONO # 0.9 K/mm3 (0.0-0.8); MONO % 8.2 % (0.0-5.0); NEUTROPHILS # 6.3 K/mm3 (1.8-7.7); NEUTROPHILS % 60.7 % (36.0-66.0); PLATELET COUNT, AUTOMATED 221 k/mm3 (150-450); RED CELL DISTRIBUTION WIDTH 12.5 % (11.5-14.5); WHITE BLOOD COUNT 10.4 K/mm3 (4.0-10.0)
[2017-07-06 07:50] LABS: ANION GAP 10 MEQ/L (8-16); BLOOD UREA NITROGEN 14 MG/DL (7-18); CALCIUM LEVEL 8.8 MG/DL (8.5-10.1); CARBON DIOXIDE LEVEL 25 MEQ/L (21-32); CHLORIDE LEVEL 107 MEQ/L (98-107); CREATININE FOR GFR 0.87 MG/DL (0.70-1.30); GLOMERULAR FILTRATION RATE > 60.0 (>60); GLUCOSE, FASTING 107 MG/DL (70-105); POTASSIUM SERUM 4.5 MEQ/L (3.5-5.1); SODIUM LEVEL 142 MEQ/L (136-145)
[2017-07-06 08:00] VITALS: BP 132/78
[2017-07-06] MEDS ORDERED: LISINOPRIL 20 MG TAB PO SCH (09:00)
[2017-07-06] MEDS ORDERED: amLODIPine 5 MG TAB PO SCH (09:00)
[2017-07-06] MEDS ORDERED: hydroCHLOROthiazide 12.5 MG CAPSULE PO SCH (09:00)
[2017-07-06] MEDS: OMEPRAZOLE 20 MG CAP PO SCH (09:27)
[2017-07-06] MEDS: HumaLOG INSULIN (NovoLOG) PER UNIT SC SCH (09:27)
[2017-07-06 09:28] VITALS: BP 132/78
[2017-07-06] MEDS: PREGABALIN 75 MG CAP(LYRICA) PO SCH (09:28)
[2017-07-06] MEDS: buPROPion **XL** TABLET 150MG (WELLBUTRIN XL) PO SCH (09:28)
[2017-07-06] MEDS: ATORVASTATIN 20 MG TAB PO SCH (09:28)
[2017-07-06] MEDS: VENLAFAXINE **XR** 37.5 MG CAPSULE PO SCH (09:28)
--- NOTE | 2017-07-15 21:43 | ROPAIN ---
DATE OF PROCEDURE: 07/05/2017 PREPROCEDURE DIAGNOSIS: Lumbar postlaminectomy pain syndrome. POSTPROCEDURE DIAGNOSIS: Lumbar postlaminectomy pain syndrome. PROCEDURE: Spinal column stimulator trial. SURGEON: Dr. Bobby Medley SECURITY MONITOR: ANESTHESIA: Local with monitored anesthesia care. PREOPERATIVE NOTE: Mr. Lamar is a 42-year-old male patient with a history of chronic low back and leg pain. I discussed with the patient the risk, alternatives and benefits of doing a spinal stimulator trial, and the patient has expressed that he move forward with this trial. The patient has tried in the past different type of interventions and at this point, he wants to address a long lasting solution for his case. DESCRIPTION OF PROCEDURE: After consent was reviewed with the patient, the patient was brought to the procedure room and placed in the prone position. Thoracolumbar area was cleaned with Betadine solution and draped aseptically. Procedure was done under sterile conditions. Target point was selected at the interlaminar level of T12-L1. Lidocaine 1 % was used as local anesthetic. Patient received clindamycin 600 mg IV. I used an Epimed Tuohy needle and reached the epidural space 7 cm deep into the skin by the loss of resistance technique. Then, a 16 contact lead from [employer] was advanced in the posterior and medial aspect of the epidural space until we had reached the area of T7 as seen in the AP and lateral views. The decision was made to place a second lead. I used also the interlaminar level of T12-L1. Lidocaine was used as local anesthetic. I put a second Epimed needle and advanced it until I touched the left lamina of L1 and then by the loss of resistance technique, I reached the epidural space 7 cm deep into the skin by the loss of resistance technique. Then, a second 16 contact lead from [employer] was advanced through this needle until I reached the epidural space and advanced the second lead parallel to the first one, also reaching the area of T7 and T8 as seen in the AP and lateral views.After proper position of the leads was achieved, I attached extensions to the leads. These extensions were attached to the computer system of [employer]. Then, programming was started. This was a simple programming of 30 minutes where I changed the contact of the leads used. I changed the voltage and I changed the position of the leads. A final position of the leads were at the area of T7 and T8 where the patient was expressing adequate pain relief and coverage of his pain. AP and lateral views were taken and left in the patient's electronic medical record for future reference. I disconnected the extension from the leads. I removed the stylet from the leads , and then I attached the leads to the patient's skin using Dermabond surgical glue and steri-strips. Then, I covered the area with 4 x 4 gauze and then with Tegaderm. Procedure was done without evidence of blood, paresthesia, cerebrospinal fluid leak. The patient was sent to the recovery room. There were no complications during the procedure. Trial will start soon. MTDAnnmarie
== END 2017-07-06 10:35 | disposition home or self-care (01) ==
LOC: M SDC 06:49 → M PED 11:15 → M SDC 07-06 10:35
PROVIDERS: ATTEND Anesthesiology
DX: M96.1 Postlaminectomy syndrome, not elsewhere classified (principal); I10 Essential (primary) hypertension; E11.9 Type 2 diabetes mellitus without complications; E78.00 Pure hypercholesterolemia, unspecified; G47.33 Obstructive sleep apnea (adult) (pediatric); K21.9 Gastro-esophageal reflux disease without esophagitis; R06.83 Snoring; Z88.0 Allergy status to penicillin; Z79.899 Other long term (current) drug therapy; Z79.84 Long term (current) use of oral hypoglycemic drugs; Z72.0 Tobacco use
CPT/HCPCS: 36415; 63650; 80048; 85025; C1776; C1778; J1200; J2250; J3010

== ENCOUNTER → 2017-07-09 | Outpatient (CLI) | payer OTHER ==
--- NOTE | 2017-07-09 13:31 | REP ---
PARTIAL THORACIC SPINE SERIES: TWO VIEWS. HISTORY: Lead pull. 3 seconds of fluoroscopy time is reported. FINDINGS: A sequence of two last image hold fluoroscopic spot radiographs of the thoracic spine document dorsal column stimulator lead position. Signed by Jeremías Martin MD 07/09/2017 04:41 P
--- NOTE | 2017-07-28 01:49 | ECWPNPC ---
PATIENT NAME: MOHINDER CRUMP : 1975 GENDER: MALE VISIT DATE: 07/09/2017 DISCHARGE DATE: 07/09/17 1246 VISIT LOCKED DATE TIME: PHYSICIAN: GLENN LANGLEY RESOURCE: GLENN LANGLEY REASON FOR APPOINTMENT 1. LOW BACK PAIN HISTORY OF PRESENT ILLNESS HISTORY OF PRESENT ILLNESS: PAIN THE PATIENT DESCRIBES THE PAIN... 42 YEAR OLD MALE PATIENT WITH HISTORY OF CHRONIC LOW BACK PAIN. PATIENT STATES AT THIS TIME HE HAS NO PAIN USE TO THE DCS TRIAL. PATIENT WAS HURT IN A WORK RELATED INJURY ON 07/05/14 WHILE WORKING AT THE [employer] AND WAS BENDING DOWN TO ADMINISTRATIVE RECEPTIONIST A BEAM. PATIENT HAS HAD BACK SURGERY FOUR YEARS AGO. AT THIS TIME THE PATIENT REPORTS HAVING OVER 80% RELIEF FROM THE DCS TRIAL AND WOULD LIKE TO CONSIDER MOVING FORWARD WITH THE PERMANENT. PATIENT DENIES UNEXPLAINABLE WEIGHT LOSS, FEVER, CHILLS, NEW CHANGES ON HIS URINARY OR BOWEL CONTROL. FALL RISK SCREENING: SCREENING :NO FALLS IN THE PAST YEAR CURRENT MEDICATIONS TAKING LISINOPRIL-HYDROCHLOROTHIAZIDE 20-12.5 MG TABLET 1 TABLET ORALLY ONCE A DAY TAKING AMLODIPINE BESYLATE 5 MG TABLET 1 TABLET ORALLY ONCE A DAY TAKING OMEPRAZOLE 40 MG CAPSULE DELAYED RELEASE 1 CAPSULE ORALLY ONCE A DAY TAKING VENLAFAXINE HCL 37.5 MG TABLET 1 TABLET WITH FOOD ORALLY DAILY TAKING BUPROPION HCL ER (XL) 300 MG TABLET EXTENDED RELEASE 24 HOUR 1 TABLET IN THE MORNING ORALLY ONCE A DAY TAKING ATORVASTATIN CALCIUM 20 MG TABLET 1 TABLET ORALLY ONCE A DAY TAKING METFORMIN HCL 500 MG TABLET 1 TABLET WITH MEALS ORALLY TWICE A DAY TAKING VITAMIN D (ERGOCALCIFEROL) 84630 UNIT CAPSULE 1 CAPSULE ORALLY WEEKLY TAKING LYRICA 75 MG CAPSULE 1 CAPSULE ORALLY TWICE A DAY FOR PAIN MDD2 TAKING CLINDAMYCIN HCL 150 MG CAPSULE 2 CAPSULES ORALLY EVERY 8 HRS NOT-TAKING CLINDAMYCIN HCL 150 MG CAPSULE 1 CAPSULE ORALLY EVERY 8 HRS MDD3 NOT-TAKING VALIUM 5 MG TABLET 1 TABLET NEEDED ORALLY 3 HRS BEFORE MRI MAY REPEAT IN 2 HRS IF NEEDED MDD2 MEDICATION LIST REVIEWED AND RECONCILED WITH THE PATIENT PAST MEDICAL HISTORY SLEEP APNEA HYPERCHOLESTREMIA HTN TYPE II DM GERD ALLERGIES PENICILLIN (FOR ALLERGIES USE ONLY) REVIEW OF SYSTEMS REVIEWED BY: PROVIDER: GLENN LANGLEY MD . CONSTITUTIONAL: ANY CHANGE IN YOUR MEDICAL CONDITION? NO . CHILLS NO . FEVER NO . INFECTION: DO YOU HAVE NEW INFECTIONS? NO . DO YOU HAVE HISTORY OF MRSA? NO . MUSCULOSKELETAL: ANY NEW PATTERNS OF PAIN OR NUMBNESS? YES ,PAIN IS BACK NOW THAT NOT HOOKED UP ANYMORE/ VERY SATISFIED WITH THE RESULTS/ WOULD LIKE TO PERSUR PERMANENT PLACEMENT. . GASTROENTEROLOGY: ANY NEW CHANGE IN BOWEL CONTROL? NO . GENITOURINARY: ANY NEW CHANGE IN BLADDER CONTROL? NO . IS THERE A CHANCE YOU COULD BE ? NO . HEMATOLOGY/LYMPH: DO YOU TAKE ANY BLOOD THINNERS? (FOR EXAMPLE- COUMADIN, PLAVIX, AGGRENOX, PLATEL, PRADAXA, OR XARELTO) NO . WHEN WAS YOUR LAST DOSE? DATE: TIME: . NEUROLOGY: HAVE YOU FALLEN IN THE PAST 6 MONTHS? NO . ANY NEW EXTREMITY NUMBNESS OR WEAKNESS? NO . CARDIOLOGY: DO YOU HAVE A PACEMAKER OR DEFIBRILLATOR? NO . RESPIRATORY: HAVE YOU BEEN SICK IN THE PAST WEEK? NO . FEVER NO . FLU LIKE SYMPTOMS? NO . COUGH NO . INTEGUMENTARY: DO YOU HAVE ANY RASHES OR OPEN SORES? NO . ALLERGIC/IMMUNO: ARE YOU ALLERGIC TO SHELLFISH OR IV DYE? NO . ANY NEW ALLERGIES? NO . PSYCHIATRIC: DO YOU HAVE THOUGHTS OF HURTING YOURSELF OR SOMEONE ELSE? NO . ARE YOU ABUSED, NEGLECTED, OR IN AN UNSAFE ENVIRONMENT? NO . ENDOCRINOLOGY: ARE YOU DIABETIC? YES . OTHER: DO YOU NEED ANY PRESCRIPTIONS? NO . IF YES, PLEASE LIST: ____ . ANY NEW PROBLEMS WITH YOUR MEDICATIONS? NO . WHEN DID YOU LAST EAT? ____ . WHEN DID YOU LAST DRINK? ____ . WHAT DID YOU LAST DRINK? ____ . NAME OF PERSON DRIVING YOU HOME? ____ . DO YOU HAVE ANY OTHER QUESTIONS OR CONCERNS NO . VITAL SIGNS WT 295 LBS, HT 71.5", BMI 40.57 INDEX, BP 155/90 MM HG, HR 92 /MIN, RR 18 /MIN, TEMP 96.5 F, OXYGEN SAT % 100%, NA INITIALS AW 1120, REVIEWED BY: CHAD. EXAMINATION : PATIENT IS ALERT O X 3 AND COOPERATIVE. TENDERNESS IN THE LOWER BACK AND PARASPINAL MUSCLE GROUP. BANDS OF TISSUE, RESTRICTION OF MOVEMENT, AND PRESENCE OF TRIGGER POINTS IN THE LOWER BACK AREA. TWO SCARS IN THE LOWER BACK APPROXIMATELY 2 1/2 INCHES LONG AND ANOTHER 3 INCHES LONG. DIFFICULTY STANDING. LIMPING FROM RIGHT LEG. RIGHT LEG WEAKER THEN THE LEFT AT EXTENSION AND FLEXION. MRI DONE ON 05/27/16 OF THE LUMBAR SPINE SHOWS DISC BULGES AT L1-L2 AND L3-L4, DISC PROTRUSION L2-L3, DISC EXTRUSION L4-L5 AND L5-S1, AND HYPERTROPHY. FLUORO WAS DONE TO CHECK POSITION OF THE LEADS. X-RAYS KEPT IN PATIENT'S EMR. ASSESSMENTS INTERVERTEBRAL DISC DISORDERS WITH RADICULOPATHY, LUMBAR REGION - M51.16 (PRIMARY) INTERVERTEBRAL DISC DISORDERS WITH RADICULOPATHY, LUMBOSACRAL REGION - M51.17 TREATMENT INTERVERTEBRAL DISC DISORDERS WITH RADICULOPATHY, LUMBAR REGION NOTES: WE DISCUSSED SEVERAL ISSUES WITH MRS. CRUMP'S PAIN MANAGEMENT CASE. AT THIS TIME THE PATIENT WILL CONTINUE TO USE LYRICA FOR THE NEUROPATHIC PAIN. AT THIS TIME THE PATIENT WOULD LIKE TO PROCEED WITH THE DCS PERMANENT HE RECEIVED OVER 80 PERCENT RELIEF FROM THE TRIAL. WE DISCUSSED THE RISKS, BENENFITS, AND ALTERNATIVES OF THE PERMANENT DCS AND THE PATIENT WOULD LIKE TO PROCEED. INSTRUCTIONS WERE GIVEN, QUESTIONS WERE ANSWERED, PATIENT REPORTS UNDERSTANDING AND AGREES WITH THE PLAN. I, RAKESH SANTOS, DOCUMENTED THE ABOVE INFORMATION ACTING A SCRIBE FOR DR. LANGLEY. I HAVE REVIEWED THE ABOVE DOCUMENT, WRITTEN BY RAKESH HARRISIBRubina AND I VERIFY THAT IT IS ACCURATE. PROCEDURES PN WORKMANS' COMP OPINION IN YOUR OPINION, WAS THE INCIDENT THAT THE PATIENT DESCRIBED THE COMPETENT MEDICAL CAUSE OF THIS INJURY/ILLNESS? YES ARE THE PATIENT'S COMPLAINTS CONSISTENT WITH HIS/HER HISTORY OF THE INJURY/ILLNESS? YES IS THE PATIENT'S HISTORY OF THE INJURY/ILLNESS CONSISTENT WITH YOUR OBJECTIVE FINDING? YES WHAT IS THE PERCENTAGE OF TEMPORARY IMPAIRMENT? MODERATE TO MARKED = 66.7% IS THE PATIENT WORKING? NO DOCTOR ON SITE: GLENN NANCE MD DIAGNOSTIC IMAGING [facility] [place] GUIDANCE (PAIN)[id number] DISPOSITION & COMMUNICATION FOLLOW UP 3 WEEKS ELECTRONICALLY SIGNED BY GLENN LANGLEY MD ON 07/27/2017 AT 11:05 AM EDT DISCLAIMER : THIS IS A VISIT SUMMARY EXTRACTED FROM THE [employer] CHART. IT IS NOT A COPY OF THE [employer] PROGRESS NOTE. [facility]
== END ==
LOC: M PAIN 11:00
PROVIDERS: ATTEND Anesthesiology
DX: M51.16 Intervertebral disc disorders with radiculopathy, lumbar region (principal); M51.17 Intervertebral disc disorders with radiculopathy, lumbosacral region; M54.5 Low back pain; G89.29 Other chronic pain; I10 Essential (primary) hypertension; E11.9 Type 2 diabetes mellitus without complications; K21.9 Gastro-esophageal reflux disease without esophagitis; E78.00 Pure hypercholesterolemia, unspecified; G47.30 Sleep apnea, unspecified; Z79.84 Long term (current) use of oral hypoglycemic drugs; Z79.2 Long term (current) use of antibiotics; Z79.899 Other long term (current) drug therapy; Z88.0 Allergy status to penicillin
CPT/HCPCS: 76000; G0463

== ENCOUNTER → 2017-08-25 | Outpatient (CLI) | payer OTHER ==
--- NOTE | 2017-08-31 00:08 | ECWPNPC ---
PATIENT NAME: MOHINDER CRUMP : 1975 GENDER: MALE VISIT DATE: 08/25/2017 DISCHARGE DATE: 08/25/17 1617 VISIT LOCKED DATE TIME: PHYSICIAN: GLENN LANGLEY RESOURCE: GLENN LANGLEY REASON FOR APPOINTMENT 1. LOW BACK PAIN HISTORY OF PRESENT ILLNESS HISTORY OF PRESENT ILLNESS: PAIN THE PATIENT DESCRIBES THE PAIN... 41 YEAR OLD MALE PATIENT WITH HISTORY OF CHRONIC LOW BACK PAIN. PATIENT DESCRIBES THE PAIN BURNING, STABBING, SHOOTING, AND HAVING IT ALL THE TIME WITH A PAIN SCORE OF 6/10. 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 PATIENT HAS HAD BACK SURGERY FOUR YEARS AGO. MR. CRUMP HAS TRIED PHYSICAL THERAPY WHICH HE STATES HELPS AT THE TIME BUT THE PAIN SEEMS TO ALWAYS BE PRESENT. PATIENT IS CURRENTLY USING LYRICA TO AID IN PAIN RELIEF. MR. CRUMP HAS TRIED INJECTIONS AND STATES THAT THEY DO NOT AID IN PAIN RELIEF. PATIENT STATES THAT ANY TYPE OF ACTIVITY INCREASES THE PAIN IN THE LOWER BACK SUCH WALKING, STANDING, SITTING, AND BENDING. AT THIS TIME THE PATIENT STATES A TENNS UNIT AIDS IN PAIN RELIEF. PATIENT WOULD LIKE TO PROCEED WITH THE DCS. PATIENT DENIES UNEXPLAINABLE WEIGHT LOSS, FEVER, CHILLS, NEW CHANGES ON HIS URINARY OR BOWEL CONTROL. FALL RISK SCREENING: SCREENING :NO FALLS IN THE PAST YEAR CURRENT MEDICATIONS TAKING LISINOPRIL-HYDROCHLOROTHIAZIDE 20-12.5 MG TABLET 1 TABLET ORALLY ONCE A DAY TAKING AMLODIPINE BESYLATE 5 MG TABLET 1 TABLET ORALLY ONCE A DAY TAKING OMEPRAZOLE 40 MG CAPSULE DELAYED RELEASE 1 CAPSULE ORALLY ONCE A DAY TAKING VENLAFAXINE HCL 37.5 MG TABLET 1 TABLET WITH FOOD ORALLY DAILY TAKING BUPROPION HCL ER (XL) 300 MG TABLET EXTENDED RELEASE 24 HOUR 1 TABLET IN THE MORNING ORALLY ONCE A DAY TAKING ATORVASTATIN CALCIUM 20 MG TABLET 1 TABLET ORALLY ONCE A DAY TAKING METFORMIN HCL 500 MG TABLET 1 TABLET WITH MEALS ORALLY TWICE A DAY TAKING VITAMIN D (ERGOCALCIFEROL) 76544 UNIT CAPSULE 1 CAPSULE ORALLY WEEKLY TAKING LYRICA 75 MG CAPSULE 1 CAPSULE ORALLY TWICE A DAY FOR PAIN MDD2 NOT-TAKING CLINDAMYCIN HCL 150 MG CAPSULE 2 CAPSULES ORALLY EVERY 8 HRS NOT-TAKING CLINDAMYCIN HCL 150 MG CAPSULE 1 CAPSULE ORALLY EVERY 8 HRS MDD3 NOT-TAKING VALIUM 5 MG TABLET 1 TABLET NEEDED ORALLY 3 HRS BEFORE MRI MAY REPEAT IN 2 HRS IF NEEDED MDD2 MEDICATION LIST REVIEWED AND RECONCILED WITH THE PATIENT PAST MEDICAL HISTORY SLEEP APNEA HYPERCHOLESTREMIA HTN TYPE II DM GERD ALLERGIES PENICILLIN (FOR ALLERGIES USE ONLY) REVIEW OF SYSTEMS REVIEWED BY: PROVIDER: GLENN LANGLEY MD . CONSTITUTIONAL: ANY CHANGE IN YOUR MEDICAL CONDITION? NO . CHILLS NO . FEVER NO . INFECTION: DO YOU HAVE NEW INFECTIONS? NO . DO YOU HAVE HISTORY OF MRSA? NO . MUSCULOSKELETAL: ANY NEW PATTERNS OF PAIN OR NUMBNESS? NO . GASTROENTEROLOGY: ANY NEW CHANGE IN BOWEL CONTROL? NO . GENITOURINARY: ANY NEW CHANGE IN BLADDER CONTROL? NO . IS THERE A CHANCE YOU COULD BE ? NO . HEMATOLOGY/LYMPH: DO YOU TAKE ANY BLOOD THINNERS? (FOR EXAMPLE- COUMADIN, PLAVIX, AGGRENOX, PLATEL, PRADAXA, OR XARELTO) NO . WHEN WAS YOUR LAST DOSE? DATE: TIME: . NEUROLOGY: HAVE YOU FALLEN IN THE PAST 6 MONTHS? NO . ANY NEW EXTREMITY NUMBNESS OR WEAKNESS? NO . CARDIOLOGY: DO YOU HAVE A PACEMAKER OR DEFIBRILLATOR? NO . RESPIRATORY: HAVE YOU BEEN SICK IN THE PAST WEEK? NO . FEVER NO . FLU LIKE SYMPTOMS? NO . COUGH NO . INTEGUMENTARY: DO YOU HAVE ANY RASHES OR OPEN SORES? NO . ALLERGIC/IMMUNO: ARE YOU ALLERGIC TO SHELLFISH OR IV DYE? NO . ANY NEW ALLERGIES? NO . PSYCHIATRIC: DO YOU HAVE THOUGHTS OF HURTING YOURSELF OR SOMEONE ELSE? NO . ARE YOU ABUSED, NEGLECTED, OR IN AN UNSAFE ENVIRONMENT? NO . ENDOCRINOLOGY: ARE YOU DIABETIC? YES . OTHER: DO YOU NEED ANY PRESCRIPTIONS? NO . IF YES, PLEASE LIST: ____ . ANY NEW PROBLEMS WITH YOUR MEDICATIONS? NO . WHEN DID YOU LAST EAT? ____ . WHEN DID YOU LAST DRINK? ____ . WHAT DID YOU LAST DRINK? ____ . NAME OF PERSON DRIVING YOU HOME? ____ . DO YOU HAVE ANY OTHER QUESTIONS OR CONCERNS NO . VITAL SIGNS WT 300 LBS, HT 71.5", BMI 41.25 INDEX, BP 145/87 MM HG, HR 104 /MIN, RR 18 /MIN, TEMP 98.5 F, OXYGEN SAT % 96%, NA INITIALS SC 15:56, REVIEWED BY: ANGY. EXAMINATION : PATIENT IS ALERT O X 3 AND COOPERATIVE. TENDERNESS IN THE LOWER BACK AND PARASPINAL MUSCLE GROUP. BANDS OF TISSUE, RESTRICTION OF MOVEMENT, AND PRESENCE OF TRIGGER POINTS IN THE LOWER BACK AREA. TWO SCARS IN THE LOWER BACK APPROXIMATELY 2 1/2 INCHES LONG AND ANOTHER 3 INCHES LONG. DIFFICULTY STANDING. LIMPING FROM RIGHT LEG. RIGHT LEG WEAKER THEN THE LEFT AT EXTENSION AND FLEXION. MRI DONE ON 05/27/16 OF THE LUMBAR SPINE SHOWS DISC BULGES AT L1-L2 AND L3-L4, DISC PROTRUSION L2-L3, DISC EXTRUSION L4-L5 AND L5-S1, AND HYPERTROPHY. ASSESSMENTS INTERVERTEBRAL DISC DISORDER WITH RADICULOPATHY OF LUMBAR REGION - M51.16 (PRIMARY) INTERVERTEBRAL DISC DISORDER WITH RADICULOPATHY OF LUMBOSACRAL REGION - M51.17 TREATMENT INTERVERTEBRAL DISC DISORDER WITH RADICULOPATHY OF LUMBAR REGION NOTES: WE DISCUSSED SEVERAL ISSUES WITH MR. CRUMP'S PAIN MANAGEMENT CASE. AT THIS TIME THE PATIENT WOULD LIEK TO PROCEED WITH THE DCS PERMANENT WITH A SURGEON. PATIENT DISCUSSED BOTH WAYS OF IMPLANTATION WITH MYSELF AND WOULD LIEK TO MOVE FORWARD WITH A SURGICAL IMPLANT. PATIENT WILL FOLLOW UP IN 2 MONTHS. INSTRUCTIONS WERE GIVEN, QUESTIONS WERE ANSWERED, PATIENT REPORTS UNDERSTANDING AND AGREES WITH THE PLAN. I, RAKESH SANTOS, DOCUMENTED THE ABOVE INFORMATION ACTING A SCRIBE FOR DR. LANGLEY. I HAVE REVIEWED THE ABOVE DOCUMENT, WRITTEN BY RAKESH BOND AND I VERIFY THAT IT IS ACCURATE. OTHERS NOTES: REFERRAL TO [facility] FOR SURGICAL IMPLANT OF DCS. PROCEDURES PN WORKMANS' COMP OPINION IN YOUR OPINION, WAS THE INCIDENT THAT THE PATIENT DESCRIBED THE COMPETENT MEDICAL CAUSE OF THIS INJURY/ILLNESS? YES ARE THE PATIENT'S COMPLAINTS CONSISTENT WITH HIS/HER HISTORY OF THE INJURY/ILLNESS? YES IS THE PATIENT'S HISTORY OF THE INJURY/ILLNESS CONSISTENT WITH YOUR OBJECTIVE FINDING? YES WHAT IS THE PERCENTAGE OF TEMPORARY IMPAIRMENT? MODERATE TO MARKED = 66.7% IS THE PATIENT WORKING? NO DOCTOR ON SITE: GLENN NANCE MD PROCEDURE CODES FA211 ESTABILISHED PATIENT [facility] FACILITY CHARGE G8427 DOC MEDS VERIFIED W/PT OR RE G8730 PAIN ASSESS POS TOOL F/U PLAN DOC DISPOSITION & COMMUNICATION FOLLOW UP 2 MONTHS ELECTRONICALLY SIGNED BY GLENN LANGLEY MD ON 08/30/2017 AT 09:07 PM EDT DISCLAIMER : THIS IS A VISIT SUMMARY EXTRACTED FROM THE [employer] CHART. IT IS NOT A COPY OF THE [employer] PROGRESS NOTE. AALIYAH
== END ==
LOC: M PAIN 15:45
PROVIDERS: ATTEND Anesthesiology
DX: M51.16 Intervertebral disc disorders with radiculopathy, lumbar region (principal); M51.17 Intervertebral disc disorders with radiculopathy, lumbosacral region; M54.5 Low back pain; G89.29 Other chronic pain; I10 Essential (primary) hypertension; E11.9 Type 2 diabetes mellitus without complications; E78.00 Pure hypercholesterolemia, unspecified; K21.9 Gastro-esophageal reflux disease without esophagitis; Z79.84 Long term (current) use of oral hypoglycemic drugs; Z79.899 Other long term (current) drug therapy; Z88.0 Allergy status to penicillin

== ENCOUNTER → 2018-08-02 | Outpatient (REF) ==
[2018-08-02 13:17] LABS: COLLAGEN EPINEPHRINE 104 SECONDS (74-162)
== END ==
LOC: M LAB REF 12:38
DX: Z00.00 Encounter for general adult medical examination without abnormal findings (principal)

== ENCOUNTER → 2018-09-16 | Outpatient (CLI) | payer OTHER | LOC: M PLARAD 14:33 | DX: M48.02 Spinal stenosis, cervical region (principal) ==

== ENCOUNTER 2018-12-29 23:12 | Emergency (ER) | payer OTHER ==
[~2018-12-29] VITALS: Ht 188 cm; Wt 150.0 kg
[~2018-12-29 23:12] MED LIST changes: -AMLO5TAB2 PO; +AMLO5TAB6 PO; -DRIS50002 PO; +DRIS50003 PO
[2018-12-29 23:36] VITALS: BP 110/63
[2018-12-30] MEDS ORDERED: NABU-119 PO (00:07)
[2018-12-30 00:34] LABS: HEMATOCRIT 45.3 % (42.0-52.0); HEMOGLOBIN 15.9 g/dl (13.5-17.5); MEAN CORPUSCULAR HEMOGLOBIN 32.3 pg (27.0-33.0); MEAN CORPUSCULAR HGB CONC 35.1 g/dl (32.0-36.5); MEAN CORPUSCULAR VOLUME 91.9 fl (80.0-96.0); PLATELET COUNT, AUTOMATED 226 10^3/uL (150-450); RED BLOOD COUNT 4.93 10^6/uL (4.30-6.10); WHITE BLOOD COUNT 10.3 10^3/uL (4.0-10.0)
[2018-12-30 00:43] LABS: AMPHETAMINES LEVEL URINE NEGATIVE (NEGATIVE); BARBITURATES URINE NEGATIVE (NEGATIVE); BENZODIAZEPINES URINE NEGATIVE (NEGATIVE); CANNABINOIDS URINE POSITIVE (NEGATIVE); COCAINE METABOLITE URINE NEGATIVE (NEGATIVE); METHADONE URINE NEGATIVE (NEGATIVE); OPIATES URINE NEGATIVE (NEGATIVE); PHENCYCLIDINE URINE NEGATIVE (NEGATIVE)
[2018-12-30 01:12] LABS: ACETAMINOPHEN LEVEL < 2.0 UG/ML (10.0-30.0); ALBUMIN 3.9 GM/DL (3.2-5.2); ALT/SGPT 45 U/L (12-78); BILIRUBIN,DIRECT < 0.1 MG/DL (0.0-0.2); BILIRUBIN,TOTAL 0.2 MG/DL (0.2-1.0); BLOOD UREA NITROGEN 9 MG/DL (7-18); CALCIUM LEVEL 8.5 MG/DL (8.5-10.1); CARBON DIOXIDE LEVEL 24 MEQ/L (21-32); CHLORIDE LEVEL 109 MEQ/L (98-107); CREATININE FOR GFR 0.81 MG/DL (0.70-1.30); ETHYL ALCOHOL (ETHANOL) 0.147 % (0.000-0.010); GLOMERULAR FILTRATION RATE > 60.0 (>60); GLUCOSE, FASTING 137 MG/DL (70-100); SALICYLATE LEVEL 3.5 MG/DL (5.0-30.0); SODIUM LEVEL 143 MEQ/L (136-145); THYROID STIMULATING HORMONE 0.841 uIU/ML (0.358-3.740)
== END 2018-12-30 05:05 | disposition home or self-care (01) ==
LOC: M ED 23:12
DX: F32.9 Major depressive disorder, single episode, unspecified (principal); F10.129 Alcohol abuse with intoxication, unspecified; Z72.0 Tobacco use; F12.10 Cannabis abuse, uncomplicated; Z79.899 Other long term (current) drug therapy; Z88.0 Allergy status to penicillin
CPT/HCPCS: 80048; 80076; 80307; 84443; 85027; 99284; G0480

== ENCOUNTER 2021-08-26 23:59 | Observation (INO) | payer BC, OTHER ==
[~2021-08-26] VITALS: Ht 188 cm; Wt 135.0 kg
[~2021-08-26 23:59] MED LIST changes: +AMLO1TAB24 PO; -AMLO5TAB6 PO; -BUPR300T34 PO; +BUPR300T92 PO; -LISI20TA PO; +LISI20TA35 PO; +NABU-73 PO; -OMEP40CA2 PO; +OMEP40CA4 PO; +OXYC1TAB23 PO; -PERCOCET PO
[2021-08-27] MEDS ORDERED: NS 1,000 ML IV ONE ×2 (03:25→08:55)
[2021-08-27] MEDS ORDERED: ONDANSETRON 4MG/2ML VIAL IV ONE (03:25)
[2021-08-27] MEDS ORDERED: ACETAMINOPHEN TAB 650MG DOSE (2X325MG) PO ONE ×2 (03:25→08:55)
[2021-08-27 04:10] LABS: HEMATOCRIT 42.9 % (42.0-52.0); HEMOGLOBIN 14.8 g/dl (13.5-17.5); MEAN CORPUSCULAR HGB CONC 34.5 g/dl (32.0-36.5); MEAN CORPUSCULAR VOLUME 89.9 fl (80.0-96.0); PLATELET COUNT, AUTOMATED 104 10^3/uL (150-450); RED BLOOD COUNT 4.77 10^6/uL (4.30-6.10); WHITE BLOOD COUNT 7.2 10^3/uL (4.0-10.0)
[2021-08-27 04:34] LABS: ALBUMIN 2.9 GM/DL (3.2-5.2); ALT/SGPT 56 U/L (12-78); BILIRUBIN,DIRECT 0.2 MG/DL (0.0-0.2); BILIRUBIN,TOTAL 0.6 MG/DL (0.2-1.0); BLOOD UREA NITROGEN 15 MG/DL (7-18); CALCIUM LEVEL 8.6 MG/DL (8.5-10.1); CARBON DIOXIDE LEVEL 27 MEQ/L (21-32); CHLORIDE LEVEL 103 MEQ/L (98-107); CK-MB VALUE MASS < 1.0 NG/ML (<3.6); CPK CREATINE PHOSPHOKINASE 41 U/L (39-308); CREATININE FOR GFR 0.86 MG/DL (0.70-1.30); GLOMERULAR FILTRATION RATE > 60.0 (>60); GLUCOSE, FASTING 133 MG/DL (70-100); LIPASE 160 U/L (73-393); MB/CK RELATIVE INDEX 2.44 (< OR =4); POTASSIUM SERUM 3.7 MEQ/L (3.5-5.1); SODIUM LEVEL 137 MEQ/L (136-145); TOTAL PROTEIN 6.7 GM/DL (6.4-8.2); TROPONIN I < 0.02 NG/ML (< 0.10)
[2021-08-27 04:38] LABS: ATYPICAL LYMPH 15 % (0-5); LYMPHOCYTES 24 % (16-44); MONOCYTES 3 % (0-5); NEUTROPHILS 51 % (28-66)
[2021-08-27 04:39] LABS: PLATELET ESTIMATE DECREASED (NORMAL)
[2021-08-27] MEDS ORDERED: IBUPROFEN 600MG TAB PO ONE (04:40)
[2021-08-27] MEDS ORDERED: ISOVUE-370 76% 100ML VIAL As Ordered ONE (05:27)
--- NOTE | 2021-08-27 05:52 | REPVR ---
PROCEDURE INFORMATION: Exam: XR Chest Exam date and time: 08/27/2021 3:57 AM Age: 46 years old Clinical indication: Cough and fever; Additional info: Fever, cough TECHNIQUE: Imaging protocol: XR of the chest. Views: 1 view. COMPARISON: CR Chest, 2 view PA, Lat 12/20/2014 4:13 PM FINDINGS: Tubes, catheters and devices: Likely Epidural stimulator leads seen in the midthoracic spine. Lungs: Linear atelectatic changes seen in the left lower lung zone. Pleural spaces: Unremarkable. No pleural effusion. No pneumothorax. Heart/Mediastinum: Unremarkable. No cardiomegaly. Bones/joints: Cervical spine fixating plate and screws seen. IMPRESSION: Minimal left lower lung zone atelectatic changes. Electronically signed by: Matt Hickey On 08/27/2021 05:51:36 AM
--- NOTE | 2021-08-27 06:04 | REPVR ---
PROCEDURE INFORMATION: Exam: CTA Chest With Contrast Exam date and time: 08/27/2021 5:06 AM Age: 46 years old Clinical indication: Fever; Additional info: Fever, chest pain, SOB TECHNIQUE: Imaging protocol: Computed tomographic angiography of the chest with contrast. 3D rendering (Not supervised by radiologist): MIP and/or 3D reconstructed images were created by the technologist. Radiation optimization: All CT scans at this facility use at least one of these dose optimization techniques: automated exposure control; mA and/or kV adjustment per patient size (includes targeted exams where dose is matched to clinical indication); or iterative reconstruction. Contrast material: ISO; Contrast volume: 100 ml; Contrast route: INTRAVENOUS (IV); COMPARISON: CR Chest, 1 view 08/27/2021 3:38 AM FINDINGS: Pulmonary arteries: Normal. No pulmonary emboli. Aorta: Unremarkable. No aortic aneurysm. No aortic dissection. Lungs: There is a 5 mm nodule in the right upper lobe on series 401, image 94. There are mild bibasilar atelectatic lung changes. Linear atelectasis seen in the lingula. There is 3 mm left lower lobe calcified granuloma. Pleural spaces: Unremarkable. No pneumothorax. No pleural effusion. Heart: Unremarkable. No cardiomegaly. No pericardial effusion. Lymph nodes: Unremarkable. No enlarged lymph nodes. Spleen: The spleen is enlarged measuring up to 16.6 centimetres. Bones/joints: Multilevel anterior thoracic spine small osteophytes and multilevel thoracic spine DJD seen. Epidural stimulator seen entering T9-T10 inter spinous space and its distal and at T6-T7 in the posterior epidural space. Soft tissues: Unremarkable. IMPRESSION: 1. No CT evidence of pulmonary embolism or right heart strain. 2. No focal lung consolidation. Nonspecific mild bibasilar atelectatic changes and lingular linear atelectasis. 3. 5 mm right upper lobe lung nodule. - For patients at low risk (minimal or absent history of smoking and of other known risk factors), no routine follow-up is indicated. - For patients at high risk (history of smoking or of other known risk factors), consider optional CT Chest at 12 months. (Reference: Emily) 4. Splenomegaly. REFERENCES: Emily Solares, et al. Guidelines for Management of Incidental Pulmonary Nodules Detected on CT Images: From the Fleischner Society 2017. Radiology. 2017;284(1):228-243. Electronically signed by: Matt Hickey On 08/27/2021 06:04:27 AM
--- NOTE | 2021-08-27 06:32 | REPVR ---
PROCEDURE INFORMATION: Exam: CT Abdomen And Pelvis With Contrast Exam date and time: 08/27/2021 5:06 AM Age: 46 years old Clinical indication: Abdominal pain; Generalized; Additional info: Fever, vomiting, abd pain TECHNIQUE: Imaging protocol: Computed tomography of the abdomen and pelvis with contrast. Radiation optimization: All CT scans at this facility use at least one of these dose optimization techniques: automated exposure control; mA and/or kV adjustment per patient size (includes targeted exams where dose is matched to clinical indication); or iterative reconstruction. Contrast material: ISO; Contrast volume: 100 ml; Contrast route: INTRAVENOUS (IV); COMPARISON: CR Chest, 1 view 08/27/2021 3:38 AM FINDINGS: Heart: There is pericardial effusion measuring up to 1.2 cm in thickness anteriorly. Liver: The liver is mildly enlarged, heterogeneous and mildly hypoattenuated. Gallbladder and bile ducts: Normal. No calcified stones. No ductal dilation. Pancreas: There is focal nodule like structure measuring 1.8 cm arising from the inferior aspect of the proximal pancreatic tail best seen on series 502 coronal image 37. No ductal dilation. Spleen: The spleen is enlarged measuring up to 17.1 cm in maximum dimensions. Adrenal glands: Normal. No mass. Kidneys and ureters: There is 2.4 cm right lower renal pole simple cyst. There is a 2 cm left upper renal pole exophytic simple cyst. There is no hydronephrosis. Stomach and bowel: Unremarkable. No obstruction. No mucosal thickening. Appendix: No evidence of appendicitis. Intraperitoneal space: Unremarkable. No free air. No significant fluid collection. Vasculature: There is mild aortic and iliac mural calcifications. Lymph nodes: Shotty lymph nodes seen in the leslie hepatitis. Urinary bladder: Unremarkable as visualized. Reproductive: Unremarkable as visualized. Bones/joints: There is multilevel lumbar spine degenerative changes with facet arthrosis. Modic changes seen at the endplates L5 and L4 vertebral bodies. Bilateral sacroiliac joints degenerative changes with some sclerosis likely due to degenerative changes with possibly an element sacroiliitis Soft tissues: Unremarkable. IMPRESSION: 1. No definite CT evidence of acute abdominal or pelvic abnormality. 2. Hepatosplenomegaly with fatty infiltration of the liver. 3. Focal nodule like projecting at the inferior aspect of the proximal pancreatic tail measuring 1.8 cm possibly normal variant appearance however a true nodule cannot be completely excluded. Correlation with MRI of the pancreas with contrast is suggested on a nonemergent outpatient basis. 4. Simple renal cysts. 5. Significant multilevel lumbar spine DJD. 6. Sacroiliac DJD possibly with an element chronic sacroiliitis. 7. Small pericardial effusion measuring up to 1.2 cm in thickness anteriorly, more prominent than CT of the chest performed at the same time. Correlation with echocardiography may be considered. COMMENTS: Consistent with the [employer]'s Incidental Findings Committee white paper (J Am Nia Radiol 2018): Any incidental renal lesion less than 1 cm or classified as too small to characterize, or any incidental cystic renal lesion characterized as simple-appearing, is likely benign. No follow-up imaging is recommended for these lesions per consensus recommendations based on imaging criteria. Electronically signed by: Matt Hickey On 08/27/2021 06:31:39 AM
[2021-08-27] MEDS ORDERED: LevoFLOXacin IV 750 MG in IV 1 EA IV ONE (07:15)
[2021-08-27] MEDS ORDERED: VENLAFAXINE **XR** 37.5 MG CAPSULE PO SCH (09:00)
[2021-08-27] MEDS ORDERED: predniSONE 20 MG TAB PO SCH (09:00)
[2021-08-27] MEDS ORDERED: PRED20TA PO (09:07)
[2021-08-27] MEDS ORDERED: AZIT-12 PO (09:07)
[2021-08-27] MEDS ORDERED: HOME MED LIST COMPLETE! XX SCH (09:10)
[2021-08-27] MEDS ORDERED: DEXTROSE 50% 50 ML SYRINGE IV PRN (10:10)
[2021-08-27] MEDS ORDERED: GLUCOSE 4GM CHEW TABLET PO PRN (10:10)
[2021-08-27] MEDS ORDERED: GLUCAGON INJ 1MG VIAL SC PRN (10:10)
[2021-08-27] MEDS ORDERED: ACETAMINOPHEN TAB 650MG DOSE (2X325MG) PO PRN (10:10)
[2021-08-27] MEDS ORDERED: VENL37TA PO (10:31)
[2021-08-27] MEDS: HumaLOG INSULIN (NovoLOG) PER UNIT SC SCH ×3 (12:00→21:00)
[2021-08-27] MEDS: NS 1,000 ML IV SCH ×2 (14:14→20:10)
[2021-08-27] MEDS: OMEPRAZOLE 20 MG CAP PO SCH (14:14)
[2021-08-27] MEDS: buPROPion **XL** TABLET 150MG (WELLBUTRIN XL) PO SCH (14:14)
[2021-08-27] MEDS: VENLAFAXINE 37.5 MG TAB PO SCH (14:15)
[2021-08-27] MEDS ORDERED: LEVALBUTEROL 1.25 MG/0.5 ML CONCENTRATE NEB NEB PRN (15:30)
[2021-08-27] MEDS ORDERED: hydroCHLOROthiazide 12.5 MG CAPSULE PO SCH (15:35)
--- NOTE | 2021-08-27 15:37 | HPEPDOC ---
[facility] Medical History & Physical Date of Admission Aug 27, 2021 Date of Service: Aug 27, 2021 Attending Physician: Ivana Baez MD History and Physical CHIEF COMPLAINT: Nausea, vomiting, fever HISTORY OF PRESENT ILLNESS: The patient is a 46-year-old male with PMH of obesity, GERD, diabetes, hyper tension, MIN, depression/anxiety, hyperlipidemia, vitamin D deficiency who presented to [facility] emergency room with the chief complaint of increased nausea, vomiting, fevers and diaphoresis over the past 8 days. The patient states that his symptoms of nausea, vomiting, fever, one episode of nonbloody, diarrhea, muscle and joint aches began on 08/19/2021. He states he has had no sick contacts and has had no recent travel. He is outdoors often however has no recent documented tick bites. The patient went to walk-in clinic on 08/21/2021 in [place], [place]. He was checked for the flu and Covid 19 which was negative. He was sent home but continues to have abnormal symptoms. On 08/23/21 he went to [facility] emergency room and was diagnosed with a bronchial infection. He was discharged home on antibiotics, name unknown. He says despite the antibiotics the patient continued to have shortness of breath, diaphoresis, decreased appetite and lethargy, fever. Last evening the patient woke up vomiting into his CPAP mask and became concerned so he came to our emergency room. In our ER, fever was documented at 101.6, he was tachycardic at 122. He was saturating at 9398 percent on 2 L nasal cannula. CTA of the chest showed lung nodule, atelectasis but no pneumonia. CT of the abdomen and pelvis showed incidental findings of questionable pancreatic nodule, fatty liver but no acute infection. Blood cultures were drawn. Only abnormal findings on labs were atypical lymphocytes elevated at 15. Peripheral smear and various other testing was ordered. Due to the patient failing outpatient antibiotics with continued fever, abnormal symptoms above the patient was admitted for further treatment and investigation. REVIEW OF SYSTEMS: Neg except for what is mentioned above PAST MEDICAL HISTORY: Obesity, GERD, diabetes, hypertension, MIN, depression/anxiety, hyperlipidemia, vitamin D deficiency PAST SURGICAL HISTORY: Spinal column stimulator surgery, back surgery x2, carpal tunnel release bilaterally, nerve release of the right elbow, Pilonidal cyst removal FAMILY HISTORY: Fatherprostate cancer. Motherhypertension, sisterhypertension SOCIAL HISTORY: Patient smokes 1 pack per day of cigarettes for 25 years. Alcohol 23 times per week. Lives alone area and no use of illicit drugs. ALLERGIES: Please see below. HOME MEDICATIONS: Please see below. PHYSICAL EXAMINATION: VS: T 101.6F, HR sinus 122, 9398 % on 2 L nasal cannula, RR 17 CONSTITUTIONAL: No acute distress, resting comfortably, AAO x 3, diaphoretic EYES: PERRLA, EOM intact HENT, MOUTH: Normocephalic, atraumatic, moist mucous membranes, large diameter neck NECK: SUPPLE, no JVD, no lymphadenopathy, no carotid bruit CV: Regular rate and rhythm, S1S2 normal, no murmurs/rubs/gallops RESPIRATORY: Clear to auscultation bilaterally, no rales/rhonchi/wheezes GI: obese abd, BS positive in 4 quadrants, soft, nontender, nondistended, no rebound or guarding, no organomegaly : Deferred MUSCULOSKELETAL: Normal ROM. No cyanosis, clubbing, swelling, joint deformity, extremity edema INTEGUMENTARY: Intact, no rashes, no lesions, no erythema NEUROLOGIC: Cranial Nerves II-XII are intact, no focal deficits PSYCHIATRIC: Mood and affect are normal LABORATORY DATA: Please see below Micro: PENDING BCX X 2 SETS, lyme titer, EBV, legionella IMAGING: CT abd/pelvis with contrast: 1. No definite CT evidence of acute abdominal or pelvic abnormality. 2. Hepatosplenomegaly with fatty infiltration of the liver. 3. Focal nodule like projecting at the inferior aspect of the proximal pancreatic tail measuring 1.8 cm possibly normal variant appearance however a true nodule cannot be completely excluded. Correlation with MRI of the pancreas with contrast is suggested on a nonemergent outpatient basis. 4. Simple renal cysts. 5. Significant multilevel lumbar spine DJD. 6. Sacroiliac DJD possibly with an element chronic sacroiliitis. 7. Small pericardial effusion measuring up to 1.2 cm in thickness anteriorly, more prominent than CT of the chest performed at the same time. Correlation with echocardiography may be considered. CTA chest: 1. No CT evidence of pulmonary embolism or right heart strain. 2. No focal lung consolidation. Nonspecific mild bibasilar atelectatic changes and lingular linear atelectasis. 3. 5 mm right upper lobe lung nodule. - For patients at low risk (minimal or absent history of smoking and of other known risk factors), no routine follow-up is indicated. - For patients at high risk (history of smoking or of other known risk factors), consider optional CT Chest at 12 months. (Reference: Emily) 4. Splenomegaly. ASSESSMENT: 46-year-old male with past medical history of obesity, GERD, diabetes, hypertension, MIN, depression/anxiety, hyperlipidemia, vitamin D deficiency admitted for further workup of fever, shortness of breath. PLAN: Fever -Present for past 8 days, persistent despite abx use -T max 101, tachycardia, no known source of infection identified today despite multiple imaging modalities -UA neg, Res panel neg -CT chest, abd/pelvis above and neg for acute infections -Per GI, unlikely pancreatic nodule source of fevers -F/u lyme titer (very active outdoors), legionella, EBV, blood cultures, daily labs, peripheral smear. -Levofloxacin started IV for after labs drawn -Consider spinal cord stimulator as cause as well/foreign body. Consult ID if fevers persists SOB -Atelectasis on CT known hx of MIN, likely obesity hypoventilation syndome as well -Recent dx of bronchitis with but CTA neg for PNA, PE -On 2 L NC -F/u testing above, CPAP nightly, nebs PRN, IS Q2H, supplemental O2 Pancreatic nodule, incidental finding -CT above -65 lb wt loss <1 yr, unintentional -Unable to do MRI due to spinal cord stimulator. D/w Dr. Schwartz, suggested o/p EUS. Can be referred by PCP and will be given information at discharge. Lung nodule, incidental finding -CT above -Smoker, high risk. Will need f/u with repeat CT 6-12 months, PCP can follow Smoker, tobacco use -Nicotine patch DM type II -HOlding PO meds -ISS, FS AC/HS, consistent carb diet HTN -Will go up being on fluids -Continue home lisinopril, amlodipine for now. Holding diuretics for today MIN -CPAP nightly GERD/ GI px -PPI Chronic back pain -Spinal cord stimulator in place DVT px -Lovenox DISPOSITION: Admitted under observation status. Plan is discharge home when medically improved. Vital Signs Vital Signs Date Time Temp Pulse Resp B/P (MAP) Pulse Ox O2 Delivery O2 Flow Rate FiO2 08/27/21 14:42 110 18 142/76 (98) 98 Nasal Cannula 2.0 08/27/21 05:40 99.0 Laboratory Data Labs 24H Laboratory Tests 2 08/27/21 03:30: Neutrophils (%) (Auto) , Nucleated Red Blood Cells % (auto) 0.0, Neutrophils 51, Band Neutrophils 7, Lymphocytes (Manual) 24, Monocytes (Manual) 3, Atypical Lymphocytes 15H, Red Blood Cell Morphology NORMAL, Platelet Estimate DECREASED, Differential Slide Review Report, Peripheral Blood Smear Path Consult PERIPHERAL SMEAR, Anion Gap 7L, Glomerular Filtration Rate > 60.0, Lactic Acid Level 1.3, Calcium Level 8.6, Total Bilirubin 0.6, Direct Bilirubin 0.2, Aspartate Amino Transf (AST/SGOT) 26, Alanine Aminotransferase (ALT/SGPT) 56, Alkaline Phosphatase 116, Total Creatine Kinase 41, Creatine Kinase MB < 1.0, Creatine Kinase MB Relative Index 2.44, Troponin I < 0.02, Total Protein 6.7, Albumin 2.9L, Albumin/Globulin Ratio 0.8, Lipase 160 08/27/21 03:56: D-Dimer, Quantitative > 4000H 08/27/21 07:08: Urine Color KEEGAN, Urine Appearance CLEAR, Urine pH 5.0, Urine Specific [place] 1.000L, Urine Protein 2+H, Urine Glucose (UA) NEGATIVE, Urine Ketones NEGATIVE, Urine Blood 1+H, Urine Nitrite NEGATIVE, Urine Bilirubin NEGATIVE, Urine Ur obilinogen 2.0H, Urine Leukocyte Esterase NEGATIVE, Urine WBC (Auto) 0, Urine RBC (Auto) 16H, Urine Hyaline Casts (Auto) 0, Urine Bacteria (Auto) NEGATIVE, Urine Squamous Epithelial Cells 0, Urine Mucus (Auto) MODERATE, Urine Sperm (Auto) 08/27/21 10:43: 08/27/21 14:21: Bedside Glucose (Misc Panel) 104 CBC/BMP Laboratory Tests 08/27/21 03:30 Microbiology Microbiology 08/27/21 Respiratory Virus Panel (PCR) (LASHELL) - Final, Complete 08/27/21 Blood Culture, Received Pending 08/27/21 Blood Culture, Received Pending Home Medications Scheduled Amlodipine Besylate (Amlodipine Besylate) 5 Mg Tab, 5 MG PO DAILY Atorvastatin Calcium (Atorvastatin Calcium) 20 Mg Tab, 20 MG PO DAILY Azithromycin (Azithromycin) 250 Mg Tablet, 250 MG PO DAILY LAST DAY 08/28/21 Bupropion HCl (Bupropion Xl) 300 Mg Tab, 300 MG PO DAILY Lisinopril/Hydrochlorothiazide (Lisinopril-Hctz 20-12.5 mg Tab) 1 Tab Tab, 2 TABS PO DAILY Metformin HCl (Metformin HCl) 500 Mg Tab, 1,000 MG PO BID Omeprazole (Omeprazole) 40 Mg Cap, 40 MG PO DAILY Prednisone (Prednisone) 20 Mg Tablet, 60 MG PO DAILY LAST DAY 08/28/21 Venlafaxine HCl (Venlafaxine HCl) 37.5 Mg Tablet, 37.5 MG PO DAILY Allergies Coded Allergies: Penicillins (Verified Allergy, Mild, RASH, 08/27/21) A-FIB/CHADSVASC A-FIB History Current/History of A-Fib/PAF?: No Current PO Anticoag Therapy: No Age/Risk Factor Scoring CHADSVASC: CHADSVASC Response (Comments) Value Age Risk Factor Age < 65 years old 0 Gender Risk Factor Male 0 Hx of CHF No 0 Hx of HTN Yes 1 Hx of Stroke/TIA/or VTE No 0 Hx of Diabetes Yes 1 Hx of Vascular Disease No 0 Total 2 Treatment Treatment ordered: Other Other anticoagulant ordered: Ivana Crenshaw MD Aug 27, 2021 15:37
[2021-08-27] MEDS: NICOTINE 21MG/24HR 1 EA TRANSDERMAL TD SCH (15:43)
[2021-08-27] MEDS: ATORVASTATIN 20 MG TAB PO SCH (15:43)
[2021-08-27 16:00] VITALS: BP 116/81
[2021-08-27] MEDS: lisinopriL 40 MG TAB PO SCH (16:29)
[2021-08-27] MEDS: ENOXAPARIN 40MG/0.4ML SYRINGE (J1650 PER 10MG) SC SCH (16:29)
[2021-08-27] MEDS: amLODIPine 5 MG TAB PO SCH (16:29)
--- NOTE | 2021-08-27 17:43 | ECGEPIP ---
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
[2021-08-27 20:00] VITALS: BP 108/68
[2021-08-28 06:00] VITALS: BP 108/72
[2021-08-28 07:08] LABS: HEMATOCRIT 40.4 % (42.0-52.0); HEMOGLOBIN 13.9 g/dl (13.5-17.5); MEAN CORPUSCULAR HEMOGLOBIN 31.3 pg (27.0-33.0); MEAN CORPUSCULAR HGB CONC 34.4 g/dl (32.0-36.5); RED BLOOD COUNT 4.44 10^6/uL (4.30-6.10); WHITE BLOOD COUNT 7.4 10^3/uL (4.0-10.0)
[2021-08-28 07:39] LABS: ALBUMIN 2.5 GM/DL (3.2-5.2); ALT/SGPT 73 U/L (12-78); BILIRUBIN,TOTAL 0.4 MG/DL (0.2-1.0); BLOOD UREA NITROGEN 12 MG/DL (7-18); CARBON DIOXIDE LEVEL 24 MEQ/L (21-32); CHLORIDE LEVEL 108 MEQ/L (98-107); CREATININE FOR GFR 0.66 MG/DL (0.70-1.30); GLOMERULAR FILTRATION RATE > 60.0 (>60); GLUCOSE, FASTING 127 MG/DL (70-100); POTASSIUM SERUM 3.8 MEQ/L (3.5-5.1); SODIUM LEVEL 139 MEQ/L (136-145); TOTAL PROTEIN 6.2 GM/DL (6.4-8.2)
[2021-08-28 07:58] LABS: PLATELET COUNT, AUTOMATED 81 10^3/uL (150-450)
[2021-08-28] MEDS: HumaLOG INSULIN (NovoLOG) PER UNIT SC SCH ×4 (08:55→20:15)
[2021-08-28] MEDS: NS 1,000 ML IV SCH ×2 (08:55→17:56)
[2021-08-28] MEDS: LevoFLOXacin IV 500 MG in IV 1 EA IV SCH (08:55)
[2021-08-28] MEDS: NICOTINE 21MG/24HR 1 EA TRANSDERMAL TD SCH (08:56)
[2021-08-28] MEDS: ENOXAPARIN 40MG/0.4ML SYRINGE (J1650 PER 10MG) SC SCH (08:56)
[2021-08-28] MEDS: OMEPRAZOLE 20 MG CAP PO SCH (08:56)
[2021-08-28] MEDS: ATORVASTATIN 20 MG TAB PO SCH (08:56)
[2021-08-28] MEDS: VENLAFAXINE 37.5 MG TAB PO SCH (08:56)
[2021-08-28] MEDS: buPROPion **XL** TABLET 150MG (WELLBUTRIN XL) PO SCH (08:57)
[2021-08-28] MEDS: amLODIPine 5 MG TAB PO SCH (08:57)
[2021-08-28] MEDS: lisinopriL 40 MG TAB PO SCH (08:57)
--- NOTE | 2021-08-28 14:56 | REP ---
INDICATION: r/o abscess in left upper thigh. COMPARISON: None. TECHNIQUE: Real-time sonographic evaluation of the left proximal medial thigh with Doppler FINDINGS: Seen in the subdermal and subcutaneous region and appearing to extend in the deep subcutaneous region there is an irregular hypoechoic area which measures approximately 2.6 x 0.9 x 1.8 cm. Color Doppler of this region shows no visible internal blood flow. IMPRESSION: There is no mass or discernible abscess, however, there does appear to be a focal area of edema. Follow-up is recommended. <Electronically signed by Louie Waggoner > 08/28/21 [id number]
--- NOTE | 2021-08-28 19:02 | IPNPDOC ---
Date Seen The patient was seen on 08/28/21. Progress Note SUBJECTIVE: Patient told me today he had a large bump in left upper thigh that had "popped". When examined further,this area appeared red, very raised and had an open area, suppurative at times. suspicious for abscess. He has been afebrile upon arrival to floor and is on RA. Denies SOB, chest pain. OBJECTIVE: PHYSICAL EXAMINATION: VS: Please see below CONSTITUTIONAL: No acute distress, resting comfortably, AAO x 3, diaphoretic EYES: PERRLA, EOM intact HENT, MOUTH: Normocephalic, atraumatic, moist mucous membranes, large diameter neck NECK: SUPPLE, no JVD, no lymphadenopathy, no carotid bruit CV: Regular rate and rhythm, S1S2 normal, no murmurs/rubs/gallops RESPIRATORY: Clear to auscultation bilaterally, no rales/rhonchi/wheezes GI: obese abd, BS positive in 4 quadrants, soft, nontender, nondistended, no rebound or guarding, no organomegaly : Deferred MUSCULOSKELETAL: Normal ROM. No cyanosis, clubbing, swelling, joint deformity, extremity edema INTEGUMENTARY: 1.5 inch x 1.5 inch raised area in left upper thigh,suspicious for abscess, draining, no foul smell, blood/pus possibly. tender to touch. no rashes, no NEUROLOGIC: Cranial Nerves II-XII are intact, no focal deficits PSYCHIATRIC: Mood and affect are normal LABORATORY DATA: Please see below Micro: PENDING BCX X 2 SETS, lyme titer, EBV, legionella IMAGING: CT abd/pelvis with contrast: 1. No definite CT evidence of acute abdominal or pelvic abnormality. 2. Hepatosplenomegaly with fatty infiltration of the liver. 3. Focal nodule like projecting at the inferior aspect of the proximal pancreatic tail measuring 1.8 cm possibly normal variant appearance however a true nodule cannot be completely excluded. Correlation with MRI of the pancreas with contrast is suggested on a nonemergent outpatient basis. 4. Simple renal cysts. 5. Significant multilevel lumbar spine DJD. 6. Sacroiliac DJD possibly with an element chronic sacroiliitis. 7. Small pericardial effusion measuring up to 1.2 cm in thickness anteriorly, more prominent than CT of the chest performed at the same time. Correlation with echocardiography may be considered. CTA chest: 1. No CT evidence of pulmonary embolism or right heart strain. 2. No focal lung consolidation. Nonspecific mild bibasilar atelectatic changes and lingular linear atelectasis. 3. 5 mm right upper lobe lung nodule. - For patients at low risk (minimal or absent history of smoking and of other known risk factors), no routine follow-up is indicated. - For patients at high risk (history of smoking or of other known risk factors), consider optional CT Chest at 12 months. (Reference: Emily) 4. Splenomegaly. US left upper thigh: Seen in the subdermal and subcutaneous region and appearing to extend in the deep subcutaneous region there is an irregular hypoechoic area which measures approximately 2.6 x 0.9 x 1.8 cm. Color Doppler of this region shows no visible internal blood flow. There is no mass or discernible abscess, however, there does appear to be a focal area of edema. Follow-up is recommended. CT upper thigh pending ASSESSMENT: 46-year-old male with past medical history of obesity, GERD, diabetes, hypertension, MIN, depression/anxiety, hyperlipidemia, vitamin D deficiency admitted for further workup of fever, shortness of breath. PLAN: Fever with SIRS, r/o 2/2 to left upper thigh infection/? abscess -Afebrile today, currently on RA, improved tachycardia -Peripheral smear neg -UA neg, Res panel neg -CT chest, abd/pelvis above and neg for acute infections -Per GI, unlikely pancreatic nodule source of fevers -F/u lyme titer (very active outdoors), legionella, EBV, blood cultures, daily labs, -Levofloxacin started IV empirically -Consider spinal cord stimulator as cause as well/foreign body. Consult ID if fevers persists SOB possibly 2/2 to atelectasis. Hx of MIN, likely obesity hypoventilation syndome -Currently on RA -Sputum no growth -Recent dx of bronchitis with but CTA neg for PNA, PE -F/u testing above, CPAP nightly, nebs PRN, IS Q2H, supplemental O2 Pancreatic nodule, incidental finding -CT above -65 lb wt loss <1 yr, unintentional -Unable to do MRI due to spinal cord stimulator. D/w Dr. Schwartz, suggested o/p EUS. Can be referred by PCP and will be given information at discharge. Lung nodule, incidental finding -CT above -Smoker, high risk. Will need f/u with repeat CT 6-12 months, PCP can follow Smoker, tobacco use -Nicotine patch DM type II -Holding PO meds -ISS, FS AC/HS, consistent carb diet HTN -Continue home lisinopril, amlodipine for now. Holding diuretics MIN -CPAP nightly GERD/ GI px -PPI Chronic back pain -Spinal cord stimulator in place DVT px -Lovenox DISPOSITION: Admitted under observation status. Plan is discharge home when medically improved. VS, I&O, 24H, Fishbone Vital Signs/I&O Vital Signs Date Time Temp Pulse Resp B/P (MAP) Pulse Ox O2 Delivery O2 Flow Rate FiO2 08/28/21 09:00 2.0 08/28/21 08:57 107 109/76 08/28/21 06:00 98.4 19 94 Nasal Cannula I&O- Last 24 Hours up to 6 AM 08/28/21 06:00 Intake Total 1540 ml Output Total 175 ml Balance 1365 ml Laboratory Data 24H LABS Laboratory Tests 2 08/27/21 20:50: Bedside Glucose (Misc Panel) 137H 08/28/21 06:53: Nucleated Red Blood Cells % (auto) 0.0, Immature Platelet Fraction 8.5, Anion Gap 7L, Glomerular Filtration Rate > 60.0, Calcium Level 8.0L, Total Bilirubin 0.4, Aspartate Amino Transf (AST/SGOT) 49H, Alanine Aminotransferase (ALT/SGPT) 73, Alkaline Phosphatase 113, Total Protein 6.2L, Albumin 2.5L, Albumin/Globulin Ratio 0.7 08/28/21 12:18: Bedside Glucose (Misc Panel) 117H 08/28/21 16:47: Bedside Glucose (Misc Panel) 210H CBC/BMP Laboratory Tests 08/28/21 06:53 Microbiology Microbiology 08/27/21 Legionella Culture, Received Pending 08/27/21 Gram Stain - Final, Complete 08/27/21 Sputum Culture - Final, Complete 08/27/21 Respiratory Virus Panel (PCR) ([facility]) - Final, Complete 08/27/21 Blood Culture - Preliminary, Resulted No growth after 24 hours . All specim... 08/27/21 Blood Culture - Preliminary, Resulted No growth after 24 hours . All specim... Ivana Baez MD Aug 28, 2021 19:02
[2021-08-28] MEDS ORDERED: ISOVUE-370 76% 100ML VIAL As Ordered ONE (19:34)
--- NOTE | 2021-08-28 20:58 | REPVR ---
PROCEDURE INFORMATION: Exam: CT Pelvis With Contrast Exam date and time: 08/28/2021 7:58 PM Age: 46 years old Clinical indication: Mass, lump, or swelling; Other: Left upper thigh; Additional info: R/O abscess in the left upper thigh TECHNIQUE: Imaging protocol: Computed tomography images of the pelvis with intravenous contrast. Radiation optimization: All CT scans at this facility use at least one of these dose optimization techniques: automated exposure control; mA and/or kV adjustment per patient size (includes targeted exams where dose is matched to clinical indication); or iterative reconstruction. Contrast material: ISOVUE 370; Contrast volume: 100 ml; Contrast route: INTRAVENOUS (IV); COMPARISON: CT ABD/PEL W/IV CONTRAST ONLY 08/27/2021 5:32 AM FINDINGS: Stomach and bowel: Mild diverticulosis is present in the distal colon. No diverticulitis. Appendix: No evidence of appendicitis. Intraperitoneal space: Unremarkable. No free air. No significant fluid collection. Vasculature: The distal aortoiliac vessels demonstrate mild atherosclerotic calcification. Lymph nodes: Unremarkable. No enlarged lymph nodes. Urinary bladder: Normal. No mass. Reproductive: Normal as visualized. Bones/joints: Unremarkable. No acute fracture. No dislocation. Soft tissues: No mass, cystic or solid, demonstrated in the left upper thigh. IMPRESSION: 1. Mild diverticulosis is present in the distal colon. No diverticulitis. 2. No mass or abscess demonstrated in the left thigh. Electronically signed by: Vinay Richard On 08/28/2021 20:58:16 PM
[2021-08-28 22:00] VITALS: BP 130/70
[2021-08-29] MEDS: NS 1,000 ML IV SCH (02:59)
[2021-08-29 06:00] VITALS: BP 122/88
[2021-08-29] MEDS: NICOTINE 21MG/24HR 1 EA TRANSDERMAL TD SCH ×2 (08:36→08:44)
[2021-08-29] MEDS: LevoFLOXacin IV 500 MG in IV 1 EA IV SCH (08:36)
[2021-08-29] MEDS: HumaLOG INSULIN (NovoLOG) PER UNIT SC SCH (08:36)
[2021-08-29] MEDS: ATORVASTATIN 20 MG TAB PO SCH (08:37)
[2021-08-29] MEDS: buPROPion **XL** TABLET 150MG (WELLBUTRIN XL) PO SCH (08:37)
[2021-08-29] MEDS: OMEPRAZOLE 20 MG CAP PO SCH (08:37)
[2021-08-29 08:38] VITALS: BP 112/74
[2021-08-29] MEDS: lisinopriL 40 MG TAB PO SCH (08:38)
[2021-08-29] MEDS: amLODIPine 5 MG TAB PO SCH (08:38)
[2021-08-29] MEDS: ENOXAPARIN 40MG/0.4ML SYRINGE (J1650 PER 10MG) SC SCH (08:38)
[2021-08-29 09:01] LABS: HEMOGLOBIN 13.6 g/dl (13.5-17.5); MEAN CORPUSCULAR HEMOGLOBIN 31.2 pg (27.0-33.0); MEAN CORPUSCULAR VOLUME 91.7 fl (80.0-96.0); PLATELET COUNT, AUTOMATED 114 10^3/uL (150-450); RED BLOOD COUNT 4.36 10^6/uL (4.30-6.10); WHITE BLOOD COUNT 8.1 10^3/uL (4.0-10.0)
[2021-08-29] MEDS ORDERED: LEVO500T3 PO (10:21)
[2021-08-29] MEDS: VENLAFAXINE 37.5 MG TAB PO SCH (11:17)
[2021-08-29 12:04] LABS: ALBUMIN 2.5 GM/DL (3.2-5.2); ALT/SGPT 72 U/L (12-78); BILIRUBIN,TOTAL 0.3 MG/DL (0.2-1.0); BLOOD UREA NITROGEN 10 MG/DL (7-18); CALCIUM LEVEL 8.2 MG/DL (8.5-10.1); CARBON DIOXIDE LEVEL 22 MEQ/L (21-32); CHLORIDE LEVEL 110 MEQ/L (98-107); CREATININE FOR GFR 0.71 MG/DL (0.70-1.30); GLOMERULAR FILTRATION RATE > 60.0 (>60); GLUCOSE, FASTING 164 MG/DL (70-100); POTASSIUM SERUM 4.1 MEQ/L (3.5-5.1); SODIUM LEVEL 138 MEQ/L (136-145); TOTAL PROTEIN 6.2 GM/DL (6.4-8.2)
--- NOTE | 2021-08-29 19:35 | DS.PDOC ---
Discharge Summary General Date of Admission Aug 27, 2021 at 10:07 Date of Discharge 08/29/21 Attending Physician: Ivana Baez MD Discharge Summary HISTORY OF PRESENT ILLNESS: The patient is a 46-year-old male with PMH of obesity, GERD, diabetes, hypertension, MIN, depression/anxiety, hyperlipidemia, vitamin D deficiency who presented to [facility] emergency room with the chief complaint of increased nausea, vomiting, fevers and diaphoresis over the past 8 days. The patient stat es that his symptoms of nausea, vomiting, fever, one episode of nonbloody, diarrhea, muscle and joint aches began on 08/19/2021. He states he has had no sick contacts and has had no recent travel. He is outdoors often however has no recent documented tick bites. The patient went to walk-in clinic on 08/21/2021 in [place], [place]. He was checked for the flu and Covid 19 which was negative. He was sent home but continues to have abnormal symptoms. On 08/23/21 he went to [facility] emergency room and was diagnosed with a bronchial infection. He was discharged home on antibiotics, name unknown. He says despite the antibiotics the patient continued to have shortness of breath, diaphoresis, decreased appetite and lethargy, fever. Last evening the patient woke up vomiting into his CPAP mask and became concerned so he came to our emergency room. In our ER, fever was documented at 101.6, he was tachycardic at 122. He was saturating at 9398 percent on 2 L nasal cannula. CTA of the chest showed lung nodule, atelectasis but no pneumonia. CT of the abdomen and pelvis showed incidental findings of questionable pancreatic nodule, fatty liver but no acute infection. Blood cultures were drawn. Only abnormal findings on labs were atypical lymphocytes elevated at 15. Peripheral smear and various other testing was ordered. Due to the patient failing outpatient antibiotics with continued fever, abnormal symptoms above the patient was admitted for further treatment and investigation. HOSPITAL COURSE: Patient was treated for fever with SIRS, r/o 2/2 to left upper thigh infection/? abscess. wound culture neg for GS but culture remained pending. Blood cultures were neg. Peripheral smear neg, UA neg, Res panel neg. He remained afebrile on the hospital floor and showed improved tachycardia with empiric levofloxacin, IVFs, tylenol PRN. CT chest, abd/pelvis neg for acute infections. Per GI, unlikely pancreatic nodule source of fevers. SOB possibly 2/2 to atelectasis but he also has hx of MIN, likely obesity hypoventilation syndome. He was weaned over 2 days to RA and saturated well with activity. Both pancreatic nodule and lung nodules were incidental findings and concerning. WE were unable to do MRI with pancreatic protocol here due to spinal cord stimulator. By 08/29/21 patient had much improved,. The patient's primary care doctor was made aware of his current hospitalization and the fact that there were many labs still pending for his infection workup: lyme titer (very active outdoors), legionella, EBV. She was also made aware of the pancreatic and lung nodules that will be requiring additional testing and follow-up outside of the hospital. Please see below under plan for additional information. The patient was counseled on smoking cessation. Due to follow-up being arranged with his primary care provider and the important information being transmitted to her directly us morning, his improved status the decision was made to discharge home. At the time of discharge the patient had no acute complaints and denied fevers, chills, nausea, vomiting. PAST MEDICAL HISTORY: Obesity, GERD, diabetes, hypertension, MIN, depression/anxiety, hyperlipidemia, vitamin D deficiency PAST SURGICAL HISTORY: Spinal column stimulator surgery, back surgery x2, carpal tunnel release bilaterally, nerve release of the right elbow, Pilonidal cyst removal FAMILY HISTORY: Fatherprostate cancer. Motherhypertension, sisterhypertension SOCIAL HISTORY: Patient smokes 1 pack per day of cigarettes for 25 years. Alcohol 23 times per week. Lives alone area and no use of illicit drugs. ALLERGIES: Please see below. DISCHARGE MEDICATIONS: Please see below. PHYSICAL EXAMINATION: VS: Please see below CONSTITUTIONAL: No acute distress, resting comfortably, AAO x 3, diaphoretic EYES: PERRLA, EOM intact HENT, MOUTH: Normocephalic, atraumatic, moist mucous membranes, large diameter neck NECK: SUPPLE, no JVD, no lymphadenopathy, no carotid bruit CV: Regular rate and rhythm, S1S2 normal, no murmurs/rubs/gallops RESPIRATORY: Clear to auscultation bilaterally, no rales/rhonchi/wheezes GI: obese abd, BS positive in 4 quadrants, soft, nontender, nondistended, no re bound or guarding, no organomegaly : Deferred MUSCULOSKELETAL: Normal ROM. No cyanosis, clubbing, swelling, joint deformity, extremity edema INTEGUMENTARY: 1.5 inch x 1.5 inch raised area in left upper thigh improving , not draining, no foul smell. slightly tender to touch. no rashes NEUROLOGIC: Cranial Nerves II-XII are intact, no focal deficits PSYCHIATRIC: Mood and affect are normal LABORATORY DATA: Please see below Micro: PENDING BCX X 2 SETS, lyme titer, EBV, legionella IMAGING: CT abd/pelvis with contrast: 1. No definite CT evidence of acute abdominal or pelvic abnormality. 2. Hepatosplenomegaly with fatty infiltration of the liver. 3. Focal nodule like projecting at the inferior aspect of the proximal pancreatic tail measuring 1.8 cm possibly normal variant appearance however a true nodule cannot be completely excluded. Correlation with MRI of the pancreas with contrast is suggested on a nonemergent outpatient basis. 4. Simple renal cysts. 5. Significant multilevel lumbar spine DJD. 6. Sacroiliac DJD possibly with an element chronic sacroiliitis. 7. Small pericardial effusion measuring up to 1.2 cm in thickness anteriorly, more prominent than CT of the chest performed at the same time. Correlation with echocardiography may be considered. CTA chest: 1. No CT evidence of pulmonary embolism or right heart strain. 2. No focal lung consolidation. Nonspecific mild bibasilar atelectatic changes and lingular linear atelectasis. 3. 5 mm right upper lobe lung nodule. - For patients at low risk (minimal or absent history of smoking and of other known risk factors), no routine follow-up is indicated. - For patients at high risk (history of smoking or of other known risk factors), consider optional CT Chest at 12 months. (Reference: Emily) 4. Splenomegaly. US left upper thigh: Seen in the subdermal and subcutaneous region and appearing to extend in the deep subcutaneous region there is an irregular hypoechoic area which measures lakia roximately 2.6 x 0.9 x 1.8 cm. Color Doppler of this region shows no visible internal blood flow. There is no mass or discernible abscess, however, there does appear to be a focal area of edema. Follow-up is recommended. CT upper thigh pending ASSESSMENT: 46-year-old male with past medical history of obesity, GERD, diabetes, hypertension, MIN, depression/anxiety, hyperlipidemia, vitamin D def iciency admitted for further workup of fever, shortness of breath. PLAN: Fever with resolved SIRS, r/o 2/2 to left upper thigh infection/? abscess vs other infection not identified yet -Afebrile since admission, currently on RA, resolved tachycardia -Peripheral smear neg -UA neg, Res panel neg -Blood cultures neg -CT chest, abd/pelvis above and neg for acute infections -Per GI, unlikely pancreatic nodule source of fevers -F/u lyme titer (very active outdoors), legionella, EBV, final wound culture from left upper thigh -Levofloxacin to be continued for additional 3 days (total 5 ) empirically -Consider spinal cord stimulator as cause as well/foreign body if fevers should return as o/p SOB possibly 2/2 to atelectasis. Hx of MIN, likely obesity hypoventilation syndome -Currently on RA -Sputum no growth -Recent dx of bronchitis with but CTA neg for PNA, PE -CPAP nightly Pancreatic nodule, incidental finding -CT above -65 lb wt loss <1 yr, unintentional -Unable to do MRI due to spinal cord stimulator. D/w Dr. Schwartz, suggested o/p EUS. Can be referred by PCP and will be given information at discharge. Dr. Neely, [facility], was updated in detail and agreed to follow up. Lung nodule, incidental finding -CT above -Smoker, high risk. Will need f/u with repeat CT 6-[address] Neely, [facility], was updated in detail and agreed to follow up. Smoker, tobacco use -Nicotine patch -Smoking cessation counseling provided DM type II -Continue home meds HTN -Continue home meds MIN -CPAP nightly GERD/ GI px -PPI Chronic back pain -Spinal cord stimulator in place DISPOSITION: Dr. Neely, [facility], was updated in detail and agreed to follow up. TIME SPENT ON DISCHARGE: 35 minutes. Vital Signs/I&Os Vital Signs Date Time Temp Pulse Resp B/P (MAP) Pulse Ox O2 Delivery O2 Flow Rate FiO2 08/29/21 08:38 85 112/74 08/29/21 06:00 97.7 18 96 Room Air 08/28/21 22:00 2.0 I&O- Last 24 Hours up to 6 AM 08/29/21 06:00 Intake Total 3240 ml Balance 3240 ml Laboratory Data Labs 24H Laboratory Tests 2 08/28/21 20:09: Bedside Glucose (Misc Panel) 149H 08/29/21 08:20: Bedside Glucose (Misc Panel) 165H 08/29/21 08:32: Nucleated Red Blood Cells % (auto) 0.0, Anion Gap 6L, Glomerular Filtration Rate > 60.0, Calcium Level 8.2L, Total Bilirubin 0.3, Aspartate Amino Transf (AST/SGOT) 42H, Alanine Aminotransferase (ALT/SGPT) 72, Alkaline Phosphatase 116, Total Protein 6.2L, Albumin 2.5L, Albumin/Globulin Ratio 0.7 08/29/21 12:37: Bedside Glucose (Misc Panel) 121H CBC/BMP Laboratory Tests 08/29/21 08:32 FSBS Laboratory Tests Test 08/28/21 20:09 08/29/21 08:20 08/29/21 12:37 Range/Units Bedside Glucose (Misc Panel) 149 165 121 70-105 MG/DL Microbiology Microbiology 08/28/21 Gram Stain - Final, Resulted 08/28/21 Wound Culture, Resulted Pending 08/27/21 Legionella Culture, Received Pending 08/27/21 Gram Stain - Final, Complete 08/27/21 Sputum Culture - Final, Complete 08/27/21 Respiratory Virus Panel (PCR) ([facility]) - Final, Complete 08/27/21 Blood Culture - Preliminary, Resulted No Growth after 48 hours. All Specime... 08/27/21 Blood Culture - Preliminary, Resulted No Growth after 48 hours. All Specime... Discharge Medications Scheduled Amlodipine Besylate (Amlodipine Besylate) 5 Mg Tab, 5 MG PO DAILY, (Reported) Atorvastatin Calcium (Atorvastatin Calcium) 20 Mg Tab, 20 MG PO DAILY, (Reported) Levofloxacin (Levofloxacin) 500 Mg Tablet, 500 MG PO DAILY Lisinopril/Hydrochlorothiazide (Lisinopril-Hctz 20-12.5 mg Tab) 1 Tab Tab, 2 TABS PO DAILY, (Reported) Metformin HCl (Metformin HCl) 500 Mg Tab, 1,000 MG PO BID, (Reported) Omeprazole (Omeprazole) 40 Mg Cap, 40 MG PO DAILY, (Reported) Venlafaxine HCl (Venlafaxine HCl) 37.5 Mg Tablet, 37.5 MG PO DAILY, (Reported) Allergies Coded Allergies: Penicillins (Verified Allergy, Mild, RASH, 08/27/21) Ivana Baez MD Aug 29, 2021 19:35
== END 2021-08-29 13:00 | disposition home or self-care (01) ==
LOC: M ED 23:59 → M ED INP 08-27 10:01 → UNDOADMIN 08-27 10:01 → M ED INP 08-27 10:07 → ENRESERV 08-27 13:40 → M MSPAV 08-27 15:09
PROVIDERS: ADMIT Internal Medicine; ATTEND Internal Medicine
DX: R50.9 Fever, unspecified (principal); L02.416 Cutaneous abscess of left lower limb; I10 Essential (primary) hypertension; E55.9 Vitamin D deficiency, unspecified; G47.33 Obstructive sleep apnea (adult) (pediatric); K21.9 Gastro-esophageal reflux disease without esophagitis; E11.9 Type 2 diabetes mellitus without complications; E66.9 Obesity, unspecified; F41.9 Anxiety disorder, unspecified; F32.9 Major depressive disorder, single episode, unspecified; E78.5 Hyperlipidemia, unspecified; F17.218 Nicotine dependence, cigarettes, with other nicotine-induced disorders; R91.1 Solitary pulmonary nodule; R86.9 Unspecified abnormal finding in specimens from male genital organs; G89.29 Other chronic pain; Z79.84 Long term (current) use of oral hypoglycemic drugs; Z79.899 Other long term (current) drug therapy; Z88.0 Allergy status to penicillin
CPT/HCPCS: 36415; 71045; 71275; 72193; 74177; 76882; 80048; 80053; 80076; 81001; 82550; 82553; 83605; 83690; 85025; 85027; 85049; 85055; 85379; 86617; 87040; 87070; 87077; 87186; 87205; 87798; 93005; 93041; 96361; 96365; 96366; 96372; 96375; 96376; 99285; J1650; J1956; J2405; Q9967

== ENCOUNTER → 2022-03-11 | Outpatient (CLI) | payer BC, MEDICARE ==
[~2022-03-11] MED LIST changes: +AZIT-12 PO; +GASTROGRAFIN SOLUTION 30ML (Q9963) As Ordered ONE; +ISOVUE-370 76% 100ML VIAL As Ordered ONE; +LEVO500T4 PO; +PRED20TA PO; +VENL37TA PO
== END ==
LOC: M RAD 08:15
PROVIDERS: ATTEND Registered Nurse
DX: Q45.3 Other congenital malformations of pancreas and pancreatic duct (principal); R10.13 Epigastric pain
CPT/HCPCS: 74160; Q9963; Q9967

== ENCOUNTER → 2022-11-26 | Outpatient (CLI) | payer MEDICARE ==
[~2022-11-26] MED LIST changes: -GASTROGRAFIN SOLUTION 30ML (Q9963) As Ordered ONE; +GASTROGRAFIN SOLUTION 30ML As Ordered ONE; +LEVO1TAB39 PO; -LEVO500T4 PO
== END ==
LOC: M RAD 09:12
PROVIDERS: ATTEND Nurse Practitioner Adult Health
DX: R11.10 Vomiting, unspecified (principal); N28.1 Cyst of kidney, acquired; K57.30 Diverticulosis of large intestine without perforation or abscess without bleeding; M47.9 Spondylosis, unspecified
CPT/HCPCS: 74177; Q9963; Q9967

== ENCOUNTER → 2023-05-04 | Outpatient (CLI) | payer OTHER ==
[~2023-05-04] MED LIST changes: -GASTROGRAFIN SOLUTION 30ML As Ordered ONE; -ISOVUE-370 76% 100ML VIAL As Ordered ONE
== END ==
LOC: M PAIN 08:00
PROVIDERS: ATTEND Nurse Practitioner Family
DX: M50.10 Cervical disc disorder with radiculopathy, unspecified cervical region (principal); M96.1 Postlaminectomy syndrome, not elsewhere classified; G89.29 Other chronic pain; E11.9 Type 2 diabetes mellitus without complications; G47.30 Sleep apnea, unspecified; I10 Essential (primary) hypertension; K21.9 Gastro-esophageal reflux disease without esophagitis; F17.210 Nicotine dependence, cigarettes, uncomplicated; Z96.89 Presence of other specified functional implants; Z86.59 Personal history of other mental and behavioral disorders; Z88.0 Allergy status to penicillin; Z88.2 Allergy status to sulfonamides; E66.01 Morbid (severe) obesity due to excess calories; Z68.41 Body mass index [BMI] 40.0-44.9, adult; Z79.84 Long term (current) use of oral hypoglycemic drugs; Z79.899 Other long term (current) drug therapy

== ENCOUNTER → 2023-06-04 | Outpatient (CLI) | payer MEDICARE ==
[~2023-06-04] MED LIST changes: +GASTROGRAFIN SOLUTION 30ML As Ordered ONE; +ISOVUE-370 76% 100ML VIAL As Ordered ONE
== END ==
LOC: M RAD 11:41
PROVIDERS: ATTEND Nurse Practitioner Adult Health
DX: R10.2 Pelvic and perineal pain (principal)
CPT/HCPCS: 74177; 76857; Q9963; Q9967

== ENCOUNTER → 2023-07-12 | Outpatient (CLI) | payer OTHER ==
[~2023-07-12] MED LIST changes: -GASTROGRAFIN SOLUTION 30ML As Ordered ONE; -ISOVUE-370 76% 100ML VIAL As Ordered ONE; +ISOVUE-M 300 61% 15ML VIAL As Ordered ONE; +LIDOCAINE 1% SDV 30ML VIAL As Ordered ONE; +diazePAM 5MG TABLET As Ordered ONE; +methylPREDNISolone SUSP 40MG/ML 1ML VIAL (DEPO MEDROL) As Ordered ONE; +oxyCODONE 5MG TAB As Ordered ONE
== END ==
LOC: M PAIN 09:00
PROVIDERS: ATTEND Anesthesiology
DX: M50.10 Cervical disc disorder with radiculopathy, unspecified cervical region (principal); G89.29 Other chronic pain; E11.9 Type 2 diabetes mellitus without complications; G47.30 Sleep apnea, unspecified; I10 Essential (primary) hypertension; K21.9 Gastro-esophageal reflux disease without esophagitis; F17.210 Nicotine dependence, cigarettes, uncomplicated; Z96.89 Presence of other specified functional implants; Z86.59 Personal history of other mental and behavioral disorders; Z88.0 Allergy status to penicillin; Z88.2 Allergy status to sulfonamides; E66.01 Morbid (severe) obesity due to excess calories; Z68.41 Body mass index [BMI] 40.0-44.9, adult; Z79.84 Long term (current) use of oral hypoglycemic drugs; Z79.899 Other long term (current) drug therapy
CPT/HCPCS: 62321; J1030; Q9967

== ENCOUNTER → 2023-08-12 | Outpatient (REF) | payer OTHER, MEDICARE ==
[~2023-08-12] MED LIST changes: -ISOVUE-M 300 61% 15ML VIAL As Ordered ONE; -LIDOCAINE 1% SDV 30ML VIAL As Ordered ONE; -diazePAM 5MG TABLET As Ordered ONE; -methylPREDNISolone SUSP 40MG/ML 1ML VIAL (DEPO MEDROL) As Ordered ONE; -oxyCODONE 5MG TAB As Ordered ONE
== END ==
LOC: M LAB REF 10:37
PROVIDERS: ATTEND Internal Medicine Gastroenterology
DX: R19.7 Diarrhea, unspecified (principal)

== ENCOUNTER → 2023-09-01 | Outpatient (CLI) | payer OTHER | LOC: M PAIN 08:30 | PROVIDERS: ATTEND Anesthesiology | DX: Z53.21 Procedure and treatment not carried out due to patient leaving prior to being seen by health care provider (principal) ==

== ENCOUNTER 2023-09-24 07:13 | Day surgery (SDC) | payer MEDICARE ==
[~2023-09-24] VITALS: Ht 185.4 cm; Wt 129.7 kg
[~2023-09-24 07:13] MED LIST changes: +NS 1,000 ML IV ONE; +SEMA0.257 SQ
[2023-09-24] MEDS ORDERED: propofoL 200 MG/20 ML VIAL As Ordered ONE ×2 (08:17→08:29)
[2023-09-24] MEDS ORDERED: GLYCOPYRROLATE INJ 0.2 MG/ML 2 ML VIAL As Ordered ONE (08:17)
[2023-09-24] MEDS ORDERED: fentaNYL 100 MCG/2 ML INJECTION As Ordered ONE (08:17)
[2023-09-24] MEDS ORDERED: LIDOCAINE 2% 100MG/5ML SDV (FOR ANES.) As Ordered ONE (08:17)
[2023-09-24] MEDS ORDERED: GLUCAGON INJ 1MG VIAL As Ordered ONE (08:32)
[2023-09-24 08:46] VITALS: TEMP 97.8
[2023-09-24 09:04] VITALS: BP 122/76; O2SAT 93
== END 2023-09-24 09:15 | disposition home or self-care (01) ==
LOC: M OPP 07:13
PROVIDERS: ATTEND Internal Medicine Gastroenterology
DX: K57.30 Diverticulosis of large intestine without perforation or abscess without bleeding (principal); K64.8 Other hemorrhoids; R19.7 Diarrhea, unspecified; R10.84 Generalized abdominal pain; R11.2 Nausea with vomiting, unspecified; K22.89 Other specified disease of esophagus; K29.70 Gastritis, unspecified, without bleeding; E11.9 Type 2 diabetes mellitus without complications; G47.30 Sleep apnea, unspecified; Z99.89 Dependence on other enabling machines and devices; F17.200 Nicotine dependence, unspecified, uncomplicated; Z79.02 Long term (current) use of antithrombotics/antiplatelets; Z79.2 Long term (current) use of antibiotics; Z79.83 Long term (current) use of bisphosphonates; Z79.84 Long term (current) use of oral hypoglycemic drugs; Z79.85 Long-term (current) use of injectable non-insulin antidiabetic drugs; Z79.899 Other long term (current) drug therapy
CPT/HCPCS: 43239; 45380; 88305; J1610; J3010

== ENCOUNTER → 2023-12-15 | Outpatient (CLI) | payer OTHER ==
[~2023-12-15] MED LIST changes: -NS 1,000 ML IV ONE
== END ==
LOC: M PAIN 16:30
PROVIDERS: ATTEND Anesthesiology
DX: M79.12 Myalgia of auxiliary muscles, head and neck (principal); M54.2 Cervicalgia; G47.30 Sleep apnea, unspecified; E78.00 Pure hypercholesterolemia, unspecified; I10 Essential (primary) hypertension; E11.9 Type 2 diabetes mellitus without complications; K21.9 Gastro-esophageal reflux disease without esophagitis; F32.A Depression, unspecified; E55.9 Vitamin D deficiency, unspecified; F17.200 Nicotine dependence, unspecified, uncomplicated; Z79.84 Long term (current) use of oral hypoglycemic drugs; Z79.899 Other long term (current) drug therapy; Z88.0 Allergy status to penicillin; Z88.2 Allergy status to sulfonamides

== ENCOUNTER → 2024-01-18 | Outpatient (CLI) | payer OTHER ==
[~2024-01-18] MED LIST changes: +TRIAMCINOLONE ACETONIDE SUSP 40MG/ML 1ML VIAL As Ordered ONE; +diazePAM 5MG TABLET As Ordered ONE; +oxyCODONE 5MG TAB As Ordered ONE
== END ==
LOC: M PAIN 11:00
PROVIDERS: ATTEND Anesthesiology
DX: M79.12 Myalgia of auxiliary muscles, head and neck (principal); G89.29 Other chronic pain; G47.30 Sleep apnea, unspecified; E78.00 Pure hypercholesterolemia, unspecified; E11.9 Type 2 diabetes mellitus without complications; K21.9 Gastro-esophageal reflux disease without esophagitis; G47.00 Insomnia, unspecified; F32.A Depression, unspecified; E55.9 Vitamin D deficiency, unspecified; F17.200 Nicotine dependence, unspecified, uncomplicated; Z79.84 Long term (current) use of oral hypoglycemic drugs; Z79.899 Other long term (current) drug therapy; Z88.0 Allergy status to penicillin; Z88.2 Allergy status to sulfonamides
CPT/HCPCS: 20552; J0665; J3301

== ENCOUNTER → 2024-02-03 | Outpatient (REF) | payer MEDICARE, OTHER ==
[~2024-02-03] MED LIST changes: -TRIAMCINOLONE ACETONIDE SUSP 40MG/ML 1ML VIAL As Ordered ONE; -diazePAM 5MG TABLET As Ordered ONE; -oxyCODONE 5MG TAB As Ordered ONE
== END ==
LOC: M SFHCDERM 16:03
PROVIDERS: ATTEND Nurse Practitioner Family
DX: R21 Rash and other nonspecific skin eruption (principal)

== ENCOUNTER → 2024-02-17 | Outpatient (CLI) | payer OTHER, MEDICARE | LOC: M PAIN 09:45 | PROVIDERS: ATTEND Nurse Practitioner Family | DX: M79.10 Myalgia, unspecified site (principal); I10 Essential (primary) hypertension; E11.9 Type 2 diabetes mellitus without complications; F17.200 Nicotine dependence, unspecified, uncomplicated; Z79.02 Long term (current) use of antithrombotics/antiplatelets; Z79.84 Long term (current) use of oral hypoglycemic drugs; Z79.891 Long term (current) use of opiate analgesic; Z79.899 Other long term (current) drug therapy; Z88.0 Allergy status to penicillin; Z88.1 Allergy status to other antibiotic agents; Z88.2 Allergy status to sulfonamides ==

== ENCOUNTER → 2024-04-25 | Outpatient (CLI) | payer OTHER ==
[~2024-04-25] MED LIST changes: +BUPR-597 PO; -BUPR300T92 PO
== END ==
LOC: M PAIN 09:15
PROVIDERS: ATTEND Nurse Practitioner Family
DX: M50.10 Cervical disc disorder with radiculopathy, unspecified cervical region (principal); G89.29 Other chronic pain; G47.30 Sleep apnea, unspecified; E78.00 Pure hypercholesterolemia, unspecified; I10 Essential (primary) hypertension; E11.9 Type 2 diabetes mellitus without complications; K21.9 Gastro-esophageal reflux disease without esophagitis; F32.A Depression, unspecified; E55.9 Vitamin D deficiency, unspecified; F17.210 Nicotine dependence, cigarettes, uncomplicated; Z79.84 Long term (current) use of oral hypoglycemic drugs; Z79.899 Other long term (current) drug therapy; Z88.0 Allergy status to penicillin; Z88.2 Allergy status to sulfonamides

== ENCOUNTER → 2024-06-16 | Outpatient (CLI) | payer MEDICARE ==
[~2024-06-16] MED LIST changes: +ISOVUE-300 61% 100ML VIAL As Ordered ONE; +LIDOCAINE 1% MDV 20ML VIAL As Ordered ONE; +TRIAMCINOLONE ACETONIDE SUSP 40MG/ML 1ML VIAL As Ordered ONE
== END ==
LOC: M RAD 12:43
PROVIDERS: ATTEND Orthopaedic Surgery
DX: M16.11 Unilateral primary osteoarthritis, right hip (principal); Z53.9 Procedure and treatment not carried out, unspecified reason

== ENCOUNTER → 2024-06-16 | Outpatient (CLI) | payer MEDICARE ==
[~2024-06-16] MED LIST changes: -ISOVUE-300 61% 100ML VIAL As Ordered ONE; +ISOVUE-300 61% 100ML VIAL ONE
== END ==
LOC: M RAD 12:33
PROVIDERS: ATTEND Orthopaedic Surgery
DX: M16.0 Bilateral primary osteoarthritis of hip (principal)
CPT/HCPCS: 20610; 77002; J3301; Q9967

== ENCOUNTER → 2024-12-21 | Outpatient (CLI) | payer OTHER, MEDICARE ==
[~2024-12-21] MED LIST changes: -ISOVUE-300 61% 100ML VIAL ONE; -LIDOCAINE 1% MDV 20ML VIAL As Ordered ONE; -TRIAMCINOLONE ACETONIDE SUSP 40MG/ML 1ML VIAL As Ordered ONE
== END ==
LOC: M PAIN 13:00
PROVIDERS: ATTEND Nurse Practitioner Family
DX: M50.10 Cervical disc disorder with radiculopathy, unspecified cervical region (principal); M96.1 Postlaminectomy syndrome, not elsewhere classified; G89.29 Other chronic pain; E11.9 Type 2 diabetes mellitus without complications; I10 Essential (primary) hypertension; E78.5 Hyperlipidemia, unspecified; K21.9 Gastro-esophageal reflux disease without esophagitis; F17.210 Nicotine dependence, cigarettes, uncomplicated; Z79.84 Long term (current) use of oral hypoglycemic drugs; Z79.899 Other long term (current) drug therapy; Z88.0 Allergy status to penicillin; Z88.2 Allergy status to sulfonamides

== ENCOUNTER → 2025-06-14 | Outpatient (CLI) | payer MEDICARE ==
[~2025-06-14] MED LIST changes: -BUPR-597 PO; +BUPR-766 PO
== END ==
LOC: M RAD 08:07
PROVIDERS: ATTEND Nurse Practitioner Adult Health
DX: Z12.2 Encounter for screening for malignant neoplasm of respiratory organs (principal); R91.1 Solitary pulmonary nodule; F17.210 Nicotine dependence, cigarettes, uncomplicated

== ENCOUNTER → 2025-10-15 | Outpatient (REF) | payer MEDICARE | LOC: M LAB REF 17:31 | PROVIDERS: ATTEND Family Medicine | DX: L02.214 Cutaneous abscess of groin (principal) ==